=== PATIENT | female | born 1975 | race Two or more races ===

== ENCOUNTER 2022-05-26 13:04 | Emergency (ER) | payer MEDICAID ==
[~2022-05-26] VITALS: Ht 167.6 cm; Wt 130.0 kg
[2022-05-26 14:44] LABS: Basophils # (auto) 0 10 ^3/uL (0-0.2); Eosinophils # (auto) 0.4 10 ^3/uL (0-0.8); Hemoglobin 12.1 g/dL (12.2-16.2); Lymphocytes # (auto) 2.7 10 ^3/uL (0.4-5.4); Nucleated Red Blood Cells % 0.1 %; White Blood Cell 11.1 10^3/uL (4.4-10.8)
[2022-05-26 14:45] LABS: Albumin 3.6 g/dL (3.4-5.0); BUN/Creatinine Ratio 12.2; Calcium 8.5 mg/dL (8.5-10.1); Potassium 4.1 mmol/L (3.5-5.1)
[2022-05-26 14:46] LABS: Basophils % (auto) 0.4 % (0.0-2.0); Eosinophils % (auto) 3.6 % (0.0-7.0); Hematocrit 36.4 % (36.0-46.0); Lymphocytes % (auto) 24.2 % (10.0-50.0); Mean Corpuscular Hemoglobin 26.2 pg (28.0-32.0); Mean Corpuscular Hgb Conc. 33.3 g/dL (32.0-36.0); Mean Corpuscular Volume 78.6 fL (80.0-100.0); Monocytes # (auto) 0.7 10 ^3/uL (0-1.3); Monocytes % (auto) 6.1 % (0.0-12.0); Neutrophils # (auto) 7.3 10 ^3/uL (1.6-8.6); Neutrophils % (auto) 65.7 % (37.0-80.0); Red Blood Cells 4.63 10^6/uL (4.0-5.20); Red Cell Distribution Width 14.7 % (11.8-14.3)
[2022-05-26 14:48] LABS: Bilirubin, Total 0.9 mg/dL (0.2-1.0); Total Protein 7.4 g/dL (6.4-8.2)
[2022-05-26 15:21] LABS: Urine Bacteria NONE SEEN /hpf (None Seen); Urine Blood TRACE /uL (Negative); Urine Mucus FEW (None Seen); Urine Specific Gravity 1.026 (1.001-1.035); Urine WBC 1 /hpf (0 - 5)
[2022-05-26] MEDS ORDERED: NITR-87 PO (18:27)
[2022-05-26] MEDS ORDERED: cefTRIAXone SOD 1,000 MG VL IM ONE (18:30)
[2022-05-26 19:11] VITALS: BP 165/92
== END 2022-05-26 19:13 | disposition home or self-care (01) ==
LOC: ER 13:04
DX: N39.0 Urinary tract infection, site not specified (principal); Z32.02 Encounter for pregnancy test, result negative
CPT/HCPCS: 36415; 74176; 80053; 81001; 81025; 82962; 83605; 83690; 85025; 93005; 96372; 99285; J0696

== ENCOUNTER 2023-02-28 11:52 | Emergency (ER) | payer MEDICAID ==
[~2023-02-28] VITALS: Ht 167.6 cm; Wt 130.3 kg
[~2023-02-28 11:52] MED LIST: NITR-87 PO
[2023-02-28 13:13] LABS: Urine Bacteria NONE SEEN /hpf (None Seen); Urine Blood 2+ /uL (Negative); Urine Clarity HAZY (Clear); Urine Color Yellow (Yellow); Urine Mucus FEW (None Seen); Urine Protein, UAD TRACE (Negative); Urine Specific Gravity 1.024 (1.001-1.035); Urine Urobilinogen Normal (Negative); Urine WBC 1 /hpf (0 - 5); Urine pH 5.5 (5.0-8.0)
[2023-02-28] MEDS ORDERED: HYDROcodone-ACET 5/325MG TAB PO ONE (14:00)
[2023-02-28 15:31] VITALS: BP 138/83; PULSE 76; RESP 18; TEMP 97.5; O2SAT 95
[2023-03-02 08:06] LABS: RPR Non Reactive (Non Reactive)
[2023-03-02 22:06] LABS: Chlamydia Trachomatis, NAA Negative (Negative); Neisseria gonorrhoeae, NAA Negative (Negative)
== END 2023-02-28 15:32 | disposition home or self-care (01) ==
LOC: ER 11:52
DX: K42.9 Umbilical hernia without obstruction or gangrene (principal); Z79.899 Other long term (current) drug therapy
CPT/HCPCS: 74176; 81001; 86592; 86703

== ENCOUNTER 2023-10-20 18:51 | Emergency (ER) | payer MEDICAID ==
[~2023-10-20] VITALS: Ht 167.6 cm; Wt 117.9 kg
[2023-10-20 19:34] VITALS: BP 135/70; PULSE 67; RESP 16; TEMP 98.7; O2SAT 96
[2023-10-20] MEDS: KETOROLAC TROMETH 60MG/2ML VIAL IM ONE (20:15)
[2023-10-20] MEDS: cefTRIAXone SOD 1,000 MG VL IM ONE (20:16)
[2023-10-20] MEDS: AZITHROMYCIN 250 MG TAB PO ONE (20:17)
[2023-10-20] MEDS: ONDANSETRON ODT 4 MG TAB PO ONE (20:17)
[2023-10-20] MEDS: ACETAMINOPHEN/CODEINE#3 (300/30mg) TAB PO ONE (20:18)
[2023-10-20 20:37] LABS: Urine Bacteria FEW /hpf (None Seen); Urine Blood 1+ /uL (Negative); Urine Clarity Turbid (Clear); Urine Color Yellow (Yellow); Urine Mucus FEW (None Seen); Urine Protein, UAD TRACE (Negative); Urine Specific Gravity 1.022 (1.001-1.035); Urine Urobilinogen Normal (Negative); Urine WBC <1 /hpf (0 - 5); Urine pH 5.5 (5.0-9.0)
[2023-10-20 20:51] LABS: Basophils # (auto) 0.1 10 ^3/uL (0-0.2); Basophils % (auto) 0.6 % (0.0-2.0); Eosinophils # (auto) 0.4 10 ^3/uL (0-0.8); Eosinophils % (auto) 3.6 % (0.0-7.0); Hematocrit 39.2 % (36.0-46.0); Hemoglobin 13.1 g/dL (12.2-16.2); Lymphocytes # (auto) 2.8 10 ^3/uL (0.4-5.4); Lymphocytes % (auto) 24.8 % (10.0-50.0); Mean Corpuscular Hemoglobin 27.5 pg (28.0-32.0); Mean Corpuscular Hgb Conc. 33.4 g/dL (32.0-36.0); Mean Corpuscular Volume 82.5 fL (80.0-100.0); Monocytes # (auto) 0.6 10 ^3/uL (0-1.3); Monocytes % (auto) 5.6 % (0.0-12.0); Neutrophils # (auto) 7.5 10 ^3/uL (1.6-8.6); Neutrophils % (auto) 65.4 % (37.0-80.0); Nucleated Red Blood Cells % 0.1 %; Red Blood Cells 4.75 10^6/uL (4.0-5.20); Red Cell Distribution Width 15.2 % (11.8-14.3); White Blood Cell 11.5 10^3/uL (4.4-10.8)
[2023-10-20 21:00] LABS: Chloride 108 mmol/L (98-107); Potassium 4.1 mmol/L (3.5-5.1); Sodium 138 mmol/L (136-145)
[2023-10-20 21:01] LABS: Anion Gap 6 (5-15); Calcium 9.5 mg/dL (8.7-10.4); Carbon Dioxide 24 mmol/L (20-30)
[2023-10-20 21:06] LABS: BUN/Creatinine Ratio 11.8 (10.0-20.0); Blood Urea Nitrogen 9 mg/dL (9-23); Glucose 105 mg/dL (74-106)
[2023-10-20] MEDS ORDERED: ACET500T58 PO (22:55)
[2023-10-20] MEDS ORDERED: IBUP-1455 PO (22:55)
[2023-10-22 21:06] LABS: Chlamydia Trachomatis, NAA Negative (Negative); Neisseria gonorrhoeae, NAA Negative (Negative)
== END 2023-10-20 23:08 | disposition home or self-care (01) ==
LOC: ER 18:51
DX: G89.29 Other chronic pain (principal); M54.59 Other low back pain; Z20.2 Contact with and (suspected) exposure to infections with a predominantly sexual mode of transmission
CPT/HCPCS: 36415; 74176; 80048; 81001; 83605; 85025; 87491; 87591; 96372; 99285; J0696; J1885; Q0162

== ENCOUNTER 2023-12-02 18:41 | Emergency (ER) | payer MEDICAID ==
[~2023-12-02] VITALS: Ht 167.6 cm; Wt 117.2 kg
[~2023-12-02 18:41] MED LIST changes: +ACET500T58 PO; +IBUP-1455 PO
[2023-12-02 19:30] LABS: Urine Bacteria None Seen /hpf (None Seen)
[2023-12-02 19:36] LABS: Urine Blood TRACE /uL (Negative); Urine Clarity Clear (Clear); Urine Color Yellow (Yellow); Urine Protein, UAD Negative (Negative); Urine Specific Gravity 1.025 (1.001-1.035); Urine Urobilinogen Normal (Negative); Urine WBC 5 /hpf (0 - 5); Urine pH 5.5 (5.0-9.0)
[2023-12-02 20:19] LABS: Basophils # (auto) 0 10 ^3/uL (0-0.2); Basophils % (auto) 0.3 % (0.0-2.0); Eosinophils # (auto) 0.5 10 ^3/uL (0-0.8); Eosinophils % (auto) 4.7 % (0.0-7.0); Hematocrit 37.7 % (36.0-46.0); Hemoglobin 12.8 g/dL (12.2-16.2); Lymphocytes % (auto) 28.2 % (10.0-50.0); Mean Corpuscular Hemoglobin 28.1 pg (28.0-32.0); Mean Corpuscular Hgb Conc. 33.8 g/dL (32.0-36.0); Mean Corpuscular Volume 83.1 fL (80.0-100.0); Monocytes # (auto) 0.5 10 ^3/uL (0-1.3); Monocytes % (auto) 4.8 % (0.0-12.0); Neutrophils # (auto) 6.7 10 ^3/uL (1.6-8.6); Platelet Count (auto) 299 10^3/uL (140-450); Red Blood Cells 4.54 10^6/uL (4.0-5.20); Red Cell Distribution Width 15.3 % (11.8-14.3); White Blood Cell 10.8 10^3/uL (4.4-10.8)
[2023-12-02 20:30] LABS: Chloride 108 mmol/L (98-107); Potassium 3.5 mmol/L (3.5-5.1); Sodium 138 mmol/L (136-145)
[2023-12-02 20:32] LABS: Anion Gap 6 (5-15); Calcium 9.7 mg/dL (8.7-10.4); Carbon Dioxide 24 mmol/L (20-30)
[2023-12-02 20:37] LABS: BUN/Creatinine Ratio 14.3 (10.0-20.0); Blood Urea Nitrogen 11 mg/dL (9-23); Glucose 105 mg/dL (74-106)
[2023-12-02] MEDS: MORPHINE SULFATE 4 MG/ML SYR/VIAL IM ONE (20:44)
[2023-12-02] MEDS: ONDANSETRON HCL 4 MG/2 ML VIAL IM ONE (20:44)
[2023-12-02] MEDS ORDERED: IBUP-1455 PO (23:11)
[2023-12-02] MEDS ORDERED: HYDR-4902 PO (23:11)
[2023-12-02 23:33] VITALS: BP 121/65; PULSE 60; RESP 18; TEMP 97.8; O2SAT 97
== END 2023-12-02 23:35 | disposition home or self-care (01) ==
LOC: ER 18:41
DX: D25.9 Leiomyoma of uterus, unspecified (principal); R10.2 Pelvic and perineal pain
CPT/HCPCS: 36415; 76830; 76856; 80048; 81001; 83605; 84702; 85025; 96372; 99285; J2270; J2405

== ENCOUNTER 2024-10-23 19:43 | Emergency (ER) | payer MEDICAID ==
[~2024-10-23] VITALS: Ht 165.1 cm; Wt 104.4 kg
[2024-10-23 19:43] VITALS: BP 131/81; PULSE 77; RESP 18; TEMP 97.9; O2SAT 97
[~2024-10-23 19:43] MED LIST changes: +HYDR-4902 PO
--- NOTE | 2024-10-23 20:37 | ED.PDOC ---
GI ASSESSMENT HPI Comments 49 year old female presents to the ED with a chief complaint of abdominal pain onset 3 days. Patient states she has been experiencing RLQ pain radiates to her back and RT leg, is also experiencing dysuria, nausea, diarrhea, dizziness, headache. Patient states she is currently of Zepbound, has been taking it for a "while." Denies any PMHx as well as vomiting, constipation, hematuria, hematemesis, chest pain, shortness of breath, fevers, chills. No other associated symptoms, modifiers, recent injuries or sick contacts present at this time. Chief Complaint: Abdominal Pain Time Seen by MD: 20:19 Primary Care Provider: JANY Nugent Notes: Medications, Allergies Allergies: Coded Allergies: NO KNOWN ALLERGIES (Unverified , 05/26/22) Home Meds Active Scripts Ibuprofen Micronized (Ibuprofen) 800 Mg Tab, 800 MG PO Q8HPRN PRN, #20 TAB Prov:REKHA LOWE [facility] 12/03/23 Hydrocodone-Acetaminophen (Hydrocodone Bitartrate/AC 5-325 mg) 1 Tab Tab, 1 TAB PO Q6HPRN PRN, #15 TAB Prov:REKHA LOWE [facility] 12/03/23 Acetaminophen (Acetaminophen) 500 Mg Tab, 500 MG PO Q4HP PRN, #30 TAB Prov:SHAILESH ELISE PAC 10/20/23 Ibuprofen Micronized (Ibuprofen) 800 Mg Tab, 800 MG PO Q8HP PRN, #20 TAB Prov:SHAILESH ELISE [facility] 10/20/23 Nitrofurantoin Monohydrate Mac (Macrobid) 100 Mg Cap, 100 MG PO BID for 7 Days, #14 CAP Prov:SHARRI DENNISP 05/26/22 Information Source: Patient Mode of Arrival: Ambulatory Timing: Days Duration: Since onset Prehospital treatment: None Quality: Sharp Vomitus: None Severity: Moderate Recent: None Recent Hx of: None Pain Location: RLQ Modifying Factors: Nothing Associated sign and symptoms: Nausea, Diarrhea, Abdominal Pain Past Medical History PAST MEDICAL HISTORY: UTI'S Surgical History: Hysterectomy 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 History: Endometriosis, Ovarian Cysts, Uterine Fibroids Family History Family History: Reviewed,noncontributory to illness, No family hx of Cancer, No family hx of DM, No family hx of Heart george, No family hx of HTN, No family hx ofKidney george, No family hx of Liver george, No family hx of Lung george, No family hx of Stroke Social History Smoker: Non-Smoker Alcohol: Occasionally Drugs: Denies Drug Use Lives In: Home Constitutional: denies: chills, diaphoresis, fatigue, fever, malaise, sweats, weakness, others EENTM: denies: blurred vision, double vision, ear bleeding, ear discharge, ear drainage, ear pain, ear ringing, eye pain, eye redness, hearing loss, mouth pain, mouth swelling, nasal discharge, nose bleeding, nose congestion, nose pain, photophobia, tearing, throat pain, throat swelling, voice changes, others Respiratory: denies: cough, hemoptysis, orthopnea, SOB at rest, shortness of breath, SOB with excertion, stridor, wheezing, others Cardiovascular: denies: chest pain, dizzy spells, diaphoresis, Dyspnea on exertion, edema, irregular heart beat, left arm pain, lightheadedness, palpitations, PND, syncope, others Gastrointestinal: reports: abdominal pain (RLQ), diarrhea, nausea; denies: abdomen distended, blood streaked bowels, constipated, dysphagia, difficulty swallowing, hematemesis, melena, poor appetite, poor fluid intake, rectal bleeding, rectal pain, vomiting, others Genitourinary: reports: dysuria; denies: abnormal vagina bleeding, burning, dyspareunia, flank pain, frequency, hematuria, incontinence, pain, , vagina discharge, urgency, others Neurological: reports: dizziness, headache; denies: fainting, left sided numbness, left sided weakness, numbness, paresthesia, pre-existing deficit, right sided numbness, right sided weakness, seizure, speech problems, tingling, tremors, weakness, others Musculoskeletal: reports: back pain, others (RT leg pain); denies: gout, joint pain, joint swelling, muscle pain, muscle stiffness, neck pain Integumetry: denies: bruises, change in color, change in hair/nails, dryness, laceration, lesions, lumps, rash, wounds, others Allergic/Immunocompromised: denies: Difficulty Healing, Frequent Infections, Hives, Itching, others Hematologic/Lymphatic: denies: anemia, blood clots, easy bleeding, easy bruising, swollen glands, others Endocrine: denies: excessive hunger, excessive sweating, excessive thirst, excessive urination, flushing, intolerance to cold, intolerance to heat, unexplained weight gain, unexplained weight loss, others Psychiatric: denies: anxiety, bipolar disorder, depression, hopeless, panic disorder, schizophrenia, sleepless, suicidal, others All Other Systems: Reviewed and Negative Physical Exam General Appearance: Normal HEENT: Normal ENT Inspection, Pharynx Normal, TMs Normal Neck: Full Range of Motion, Non-Tender, Normal, Normal Inspection Respiratory: Chest Non-Tender, Lungs Clear, No Accessory Muscle Use, No Respiratory Distress, Normal Breath Sounds Cardiovascular: No Edema, No JVD, No Murmur, No Gallop, Normal Peripheral Pulse s, Regular Rate/Rhythm Breast Exam: Deferred Gastrointestinal: No Organomegaly, Non Tender, No Pulsatile Mass, Normal Bowel Sounds, Soft Genitalia: Deferred Pelvic: Deferred Rectal: Deferred Extremities: No calf tenderness, Normal capillary refill, Normal inspection, Normal range of motion, Non-tender, No pedal edema Musculoskeletal : Apperance: Normal Neurologic: Alert, unscrambler II-XII nml as Tested, No Motor Deficits, Normal Affect, Normal Mood, No Sensory Deficits Cerebellar Function: Normal Reflexes: Normal Skin: Dry, Normal Color, Warm Lymphatic: No Adenopathy Was a procedure done? Was a procedure done?: No GI differential Dx Differential Diagnosis: Appendicitis, Gastritis/PUD, Gastroenteritis X-Ray, Labs, Meds, VS Vital Signs Date Time Temp Pulse Resp B/P (MAP) Pulse Ox O2 Delivery O2 Flow Rate FiO2 10/23/24 19:43 97.9 77 18 131/81 (98) 97 97.9 Lab Test 10/23/24 20:23 10/23/24 20:10 Range/Units White Blood Count 8.4 4.4-10.8 10^3/uL Red Blood Count 5.04 4.0-5.20 10^6/uL Hemoglobin 13.7 12.2-16.2 g/dL Hematocrit 40.2 36.0-46.0 % Mean Corpuscular Volume 79.8 L 80.0-100.0 fL Mean Corpuscular Hemoglobin 27.1 L 28.0-32.0 pg Mean Corpuscular Hemoglobin Concent 33.9 32.0-36.0 g/dL Red Cell Distribution Width 15.0 H 11.8-14.3 % Platelet Count 292 140-450 10^3/uL Mean Platelet Volume 8.2 6.9-10.8 fL Neutrophils (%) (Auto) 52.5 37.0-80.0 % Lymphocytes (%) (Auto) 33.6 10.0-50.0 % Monocytes (%) (Auto) 6.2 0.0-12.0 % Eosinophils (%) (Auto) 7.2 H 0.0-7.0 % Basophils (%) (Auto) 0.5 0.0-2.0 % Neutrophils # (Auto) 4.4 1.6-8.6 10 ^3/uL Lymphocytes # (Auto) 2.8 0.4-5.4 10 ^3/uL Monocytes # (Auto) 0.5 0-1.3 10 ^3/uL Eosinophils # (Auto) 0.6 0-0.8 10 ^3/uL Basophils # (Auto) 0 0-0.2 10 ^3/uL Nucleated Red Blood Cells 0.1 % Sodium Level 140 136-145 mmol/L Potassium Level 4.2 3.5-5.1 mmol/L Chloride Level 103 98-107 mmol/L Carbon Dioxide Level 30 20-31 mmol/L Anion Gap 7 5-15 Blood Urea Nitrogen 12 9-23 mg/dL Creatinine 0.98 0.550-1.02 mg/dL Glomerular Filtration Rate Calc 71 >90 mL/min BUN/Creatinine Ratio 12.2 10.0-20.0 Serum Glucose 101 74-106 mg/dL Calcium Level 10.0 8.7-10.4 mg/dL Urine Color Yellow Yellow Urine Clarity Turbid H Clear Urine pH 5.0 5.0-9.0 Urine Specific [place]ps 1.017 1.001-1.035 Urine Protein Negative Negative Urine Ketones Negative Negative Urine Blood Negative Negative /uL Urine Nitrite Negative Negative Urine Bilirubin Negative Negative Urine Urobilinogen Normal Negative mg/dL Urine Leukocyte Esterase Negative Negative /uL Urine RBC 3 0 - 4 /hpf Urine Microscopic WBC 4 0-5 /HPF Urine Squamous Epithelial Cells Few <5 /hpf Urine Bacteria Few H None Seen /hpf Urine Hyaline Casts Few 0 - 2 /lpf Urine Mucus Few None Seen Urine Glucose Normal Normal mg/dL Urine Test Negative Negative Time of 1ST Reevaluation: 20:49 Reevaluation 1ST: Unchanged Patient Education/Counseling: Diagnosis, Treatment, Prognosis Family Education/Counseling: No Family Present Additional Information The following tests were ordered, and results were reviewed by me: BMP, CBC, UA, PREGUA I discussed treatment and results with medical personnel and: patient Comprehensive systems review obtained and negative except for what is stated in the HPI. SEPSIS Sepsis Screen Date sepsis recognized/suspect: Oct 23, 2024 Time Sepsis recognized/suspect: 1942 Recent Procedure: No On Antibiotic Therapy: No Respiratory Rate >20: No Heart Rate >90: No Temp<36 C (96.8 F) or >38.3 C: No SBP <90 or MAP <65 mmHG: No New Acute Mental Status Change: No Is the patient on CPAP, BIPAP,: No Vital Signs Date Time Temp Pulse Resp B/P (MAP) Pulse Ox O2 Delivery O2 Flow Rate FiO2 10/23/24 19:43 97.9 77 18 131/81 (98) 97 97.9 Laboratory Tests Test 10/23/24 20:23 White Blood Count 8.4 10^3/uL (4.4-10.8) Departure 1 Departure Time of Disposition: 05:54 (Patient presented with right lower quadrant pain concerning for possible appendicitis. The patient eloped prior to workup completion.) Impression: Primary Impression: Right lower quadrant pain Disposition: 07 LEFT AWOL/ELOPED Condition: Serious Critical Care Note Critical Care Time?: No Stability Stability form required: No I personally scribed for HAO CALVIN MD ([email or web address]) on 10/23/24 at 20:37. Electronically submitted by Florencia Monzon ([email or web address]). I personally scribed for HAO CALVIN MD ([email or web address]) on 10/23/24 at 20:49. Electronically submitted by Florencia Monzon ([email or web address]). HAO CALVIN MD Oct 23, 2024 20:37
[2024-10-23 20:57] LABS: Chloride 103 mmol/L (98-107); Potassium 4.2 mmol/L (3.5-5.1); Sodium 140 mmol/L (136-145)
[2024-10-23 20:58] LABS: Anion Gap 7 (5-15); Carbon Dioxide 30 mmol/L (20-31)
[2024-10-23 20:59] LABS: Calcium 10.0 mg/dL (8.7-10.4)
[2024-10-23 21:01] LABS: Hematocrit 40.2 % (36.0-46.0); Hemoglobin 13.7 g/dL (12.2-16.2); Mean Corpuscular Hemoglobin 27.1 pg (28.0-32.0); Mean Corpuscular Volume 79.8 fL (80.0-100.0); Nucleated Red Blood Cells % 0.1 %
[2024-10-23 21:03] LABS: Glucose 101 mg/dL (74-106)
[2024-10-23 21:04] LABS: BUN/Creatinine Ratio 12.2 (10.0-20.0); Blood Urea Nitrogen 12 mg/dL (9-23)
[2024-10-23 21:25] LABS: Urine Protein, UAD Negative (Negative)
[2024-10-23] MEDS ORDERED: MORPHINE SULFATE 4 MG/ML SYR/VIAL IV ONE (22:15)
[2024-10-23] MEDS ORDERED: FAMOTIDINE (10MG/ML) 2ML VL IV ONE (22:15)
[2024-10-23] MEDS ORDERED: SODIUM CHLORIDE 0.9% 1,000 ML IV ONE (22:15)
[2024-10-23] MEDS ORDERED: ONDANSETRON HCL 4 MG/2 ML VIAL IV ONE (22:15)
[2024-10-23] MEDS ORDERED: IOHEXOL 300 MG/ML 100ML BOTTLE IJ ONE (22:19)
== END 2024-10-24 00:10 | disposition left against medical advice (07) ==
LOC: ER 19:43
DX: R10.31 Right lower quadrant pain (principal); R19.7 Diarrhea, unspecified; R11.0 Nausea; F10.90 Alcohol use, unspecified, uncomplicated; Z87.440 Personal history of urinary (tract) infections; Z90.710 Acquired absence of both cervix and uterus; Z79.899 Other long term (current) drug therapy; Y90.9 Presence of alcohol in blood, level not specified
CPT/HCPCS: 36415; 80048; 81001; 81025; 85025; 99283; Q9967

== ENCOUNTER 2024-10-29 17:39 | Inpatient (IN) | payer MEDICAID ==
[~2024-10-29] VITALS: Ht 165.1 cm; Wt 107.1 kg
--- NOTE | 2024-10-29 18:09 | ED.PDOC ---
Altered Mental Status HPI Comments 49 y.o female presents to the ED s/p syncopal episode today in [facility] today. Patient reports she was with her boyfriend and son, states she is unable to recall event leading to syncope but was feeling dizzy and was unable to focus her vision. Patient states when she finally regained consciousness, she was sitting down on the floor but is unsure if she had positive head trauma. Patient mentions decrease appetite due to Zepbound injection use for weight loss. She denies any head pain, nausea, vomiting, chest pain, SOB. Patient presents with BG of 124. Time Seen by MD: 18:01 Primary Care Provider: JANY Nugent Notes: Nurses Notes, Medications, Allergies Allergies: Coded Allergies: NO KNOWN ALLERGIES (Unverified , 05/26/22) Home Meds Active Scripts Ibuprofen Micronized (Ibuprofen) 800 Mg Tab, 800 MG PO Q8HPRN PRN, #20 TAB Prov:REKHA LOWE PAC 12/03/23 Hydrocodone-Acetaminophen (Hydrocodone Bitartrate/AC 5-325 mg) 1 Tab Tab, 1 TAB PO Q6HPRN PRN, #15 TAB Prov:REKHA LOWE [facility] 12/03/23 Acetaminophen (Acetaminophen) 500 Mg Tab, 500 MG PO Q4HP PRN, #30 TAB Prov:SHAILESH ELISE PAC 10/20/23 Ibuprofen Micronized (Ibuprofen) 800 Mg Tab, 800 MG PO Q8HP PRN, #20 TAB Prov:SHAILESH ELISE PAC 10/20/23 Nitrofurantoin Monohydrate Mac (Macrobid) 100 Mg Cap, 100 MG PO BID for 7 Days, #14 CAP Prov:SHARRI DENNISP 05/26/22 Information Source: Patient Mode of Arrival: Ambulatory Severity: Moderate Timing: Hours Duration: Since onset Quality: Decreased Alertness Associated Signs and Symptoms: None Past Medical History PAST MEDICAL HISTORY: UTI'S Past Medical History (Other): chronic back pain Surgical History: Cholecystectomy, (2), Hysterectomy [employer] History: Endometriosis, Ovarian Cysts, Uterine Fibroids Family History Family History: Reviewed,noncontributory to illness, No family hx of Cancer, No family hx of DM, No family hx of Heart george, No family hx of HTN, No family hx ofKidney george, No family hx of Liver george, No family hx of Lung george, No family hx of Stroke Social History Smoker: Non-Smoker Alcohol: Occasionally Drugs: Denies Drug Use Lives In: Home Constitutional: denies: chills, diaphoresis, fatigue, fever, malaise, sweats, weakness, others EENTM: denies: blurred vision, double vision, ear bleeding, ear discharge, ear drainage, ear pain, ear ringing, eye pain, eye redness, hearing loss, mouth pain, mouth swelling, nasal discharge, nose bleeding, nose congestion, nose pain, photophobia, tearing, throat pain, throat swelling, voice changes, others Respiratory: denies: cough, hemoptysis, orthopnea, SOB at rest, shortness of breath, SOB with excertion, stridor, wheezing, others Cardiovascular: reports: syncope; denies: chest pain, dizzy spells, diaphoresis, Dyspnea on exertion, edema, irregular heart beat, left arm pain, lightheadedness, palpitations, PND, others Gastrointestinal: denies: abdomen distended, abdominal pain, blood streaked bowels, constipated, diarrhea, dysphagia, difficulty swallowing, hematemesis, melena, nausea, poor appetite, poor fluid intake, rectal bleeding, rectal pain, vomiting, others Genitourinary: denies: abnormal vagina bleeding, burning, dyspareunia, dysuria, flank pain, frequency, hematuria, incontinence, pain, , vagina discharge, urgency, others Neurological: denies: dizziness, fainting, headache, left sided numbness, left sided weakness, numbness, paresthesia, pre-existing deficit, right sided numbness, right sided weakness, seizure, speech problems, tingling, tremors, weakness, others Musculoskeletal: denies: back pain, gout, joint pain, joint swelling, muscle pain, muscle stiffness, neck pain, others Integumetry: denies: bruises, change in color, change in hair/nails, dryness, laceration, lesions, lumps, rash, wounds, others Allergic/Immunocompromised: denies: Difficulty Healing, Frequent Infections, Hives, Itching, others Endocrine: denies: excessive hunger, excessive sweating, excessive thirst, excessive urination, flushing, intolerance to cold, intolerance to heat, unexplained weight gain, unexplained weight loss, others Psychiatric: denies: anxiety, bipolar disorder, depression, hopeless, panic disorder, schizophrenia, sleepless, suicidal, others All Other Systems: Reviewed and Negative Physical Exam General Appearance: Moderate Distress HEENT: Normal ENT Inspection, Pharynx Normal, TMs Normal Neck: Full Range of Motion, Non-Tender, Normal, Normal Inspection Respiratory: Chest Non-Tender, Lungs Clear, No Accessory Muscle Use, No Respiratory Distress, Normal Breath Sounds Cardiovascular: No Edema, No JVD, No Murmur, No Gallop, Tachycardia Breast Exam: Deferred Gastrointestinal: No Organomegaly, No Pulsatile Mass, Normal Bowel Sounds, Soft Genitalia: Deferred Pelvic: Deferred Rectal: Deferred Extremities: No calf tenderness, Normal capillary refill, No pedal edema Musculoskeletal : Apperance: Normal Neurologic: Alert, manager pharmacy II-XII nml as Tested, Motor Weakness, Normal Affect, Normal Mood, No Sensory Deficits Cerebellar Function: Normal Reflexes: Normal Skin: Dry, Normal Color, Warm Lymphatic: No Adenopathy EKG EKG : Pulse Rate (adult): 104 Cardiac Rhythm: ST Was a procedure done? Was a procedure done?: No Differential Diagnosis (ALOC) Differential Diagnosis: Dehydration, Hypoxemia, Closed Head Injury X-Ray, Labs, Meds, VS Vital Signs Date Time Temp Pulse Resp B/P (MAP) Pulse Ox O2 Delivery O2 Flow Rate FiO2 10/29/24 20:10 78 10/29/24 18:11 104 10/29/24 18:09 97.8 102 18 115/81 (92) 96 97.8 10/29/24 18:09 104 Lab Test 10/29/24 18:30 10/29/24 18:03 10/29/24 18:00 Range/Units White Blood Count 13.1 #H 4.4-10.8 10^3/uL Red Blood Count 5.64 H 4.0-5.20 10^6/uL Hemoglobin 15.1 12.2-16.2 g/dL Hematocrit 44.7 # 36.0-46.0 % Mean Corpuscular Volume 79.4 L 80.0-100.0 fL Mean Corpuscular Hemoglobin 26.8 L 28.0-32.0 pg Mean Corpuscular Hemoglobin Concent 33.8 32.0-36.0 g/dL Red Cell Distribution Width 15.5 H 11.8-14.3 % Platelet Count 329 140-450 10^3/uL Mean Platelet Volume 8.5 6.9-10.8 fL Neutrophils (%) (Auto) 71.2 37.0-80.0 % Lymphocytes (%) (Auto) 19.9 10.0-50.0 % Monocytes (%) (Auto) 6.3 0.0-12.0 % Eosinophils (%) (Auto) 2.3 0.0-7.0 % Basophils (%) (Auto) 0.3 0.0-2.0 % Neutrophils # (Auto) 9.3 H 1.6-8.6 10 ^3/uL Lymphocytes # (Auto) 2.6 0.4-5.4 10 ^3/uL Monocytes # (Auto) 0.8 0-1.3 10 ^3/uL Eosinophils # (Auto) 0.3 0-0.8 10 ^3/uL Basophils # (Auto) 0 0-0.2 10 ^3/uL Nucleated Red Blood Cells 0.0 % Sodium Level 139 136-145 mmol/L Potassium Level 4.4 3.5-5.1 mmol/L Chloride Level 105 98-107 mmol/L Carbon Dioxide Level 26 20-31 mmol/L Anion Gap 8 5-15 Blood Urea Nitrogen 13 9-23 mg/dL Creatinine 1.20 H 0.550-1.02 mg/dL Glomerular Filtration Rate Calc 55 >90 mL/min BUN/Creatinine Ratio 10.8 10.0-20.0 Serum Glucose 96 74-106 mg/dL Calcium Level 9.7 8.7-10.4 mg/dL Urine Color Pending Urine Clarity Pending Urine pH Pending Urine Specific [place]ot Pending Urine Protein Pending Urine Ketones Pending Urine Blood Pending Urine Nitrite Pending Urine Bilirubin Pending Urine Urobilinogen Pending Urine Leukocyte Esterase Pending Urine RBC Pending Urine Microscopic WBC Pending Urine Squamous Epithelial Cells Pending Urine Bacteria Pending Urine Glucose Pending POC Glucose 124 H 70-106 mg/dl CAT scan of the head is within normal limits The patient's CBC shows an elevated white blood cell count of 13.1 The rest of the CBC and chemistry panel are within normal limits The urine test is pending The patient is being admitted at this time The patient understands and agrees with the management. Images Reviewed?: Images reviewed and evaluated by me Time of 1ST Reevaluation: 18:09 Reevaluation 1ST: Unchanged Patient Education/Counseling: Diagnosis, Treatment, Prognosis Family Education/Counseling: No Family Present SEPSIS Sepsis Screen Physician Orders Urinalysis (10/29/24 18:09) Heplock Iv (10/29/24 18:09) Knifer Up (10/29/24 18:09) Blood Pressure (10/29/24 18:09) Pulse Oximetry (10/29/24 18:09) Electrocardigram (10/29/24 21:09) Head Without Contrast (10/29/24 18:09) Vital Signs Date Time Temp Pulse Resp B/P (MAP) Pulse Ox O2 Delivery O2 Flow Rate FiO2 10/29/24 20:10 78 10/29/24 18:11 104 10/29/24 18:09 97.8 102 18 115/81 (92) 96 97.8 10/29/24 18:09 104 Laboratory Tests Test 10/29/24 18:30 White Blood Count 13.1 10^3/uL (4.4-10.8) #H Departure 1 Departure Time of Disposition: 20:01 Impression: Primary Impression: Autonomic dysfunction Additional Impression: Blunt head trauma Qualified Codes: S09.8XXA - Other specified injuries of head, initial encounter Disposition: ADMITTED INPATIENT Admit to: Med Surg Condition: Fair Critical Care Note Critical Care Time?: Yes (45 min-critical care time only) Stability Stability form required: Yes Unstable for transfer: Telemetry monitoring (Telemetry monitoring required), ED Physician Assesment (Clinical assesment) Heart Score Heart Score: Heart Score Response (Comments) Value History N/A 0 EKG N/A 0 Age N/A 0 Risk Factors N/A 0 Troponin N/A 0 Total 0 I personally scribed for ONEAL HIGHTOWER MD ([email or web address]) on 10/29/24 at 18:09. Electronically submitted by Yola Valenzuela ([email or web address]). I personally scribed for ONEAL HIGHTOWER MD ([email or web address]) on 10/29/24 at 18:11. Electronically submitted by Yola Valenzuela ([employer]). ONEAL HIGHTOWER MD Oct 29, 2024 18:09
--- NOTE | 2024-10-29 18:12 | ECG ---
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
[2024-10-29] MEDS: SODIUM CHLORIDE 0.9% 1,000 ML IV ONE (18:15)
[2024-10-29 18:52] LABS: Chloride 105 mmol/L (98-107); Potassium 4.4 mmol/L (3.5-5.1); Sodium 139 mmol/L (136-145)
[2024-10-29 18:53] LABS: Anion Gap 8 (5-15); Calcium 9.7 mg/dL (8.7-10.4); Carbon Dioxide 26 mmol/L (20-31)
[2024-10-29 18:56] LABS: Hemoglobin 15.1 g/dL (12.2-16.2); Nucleated Red Blood Cells % 0.0 %
[2024-10-29 18:57] LABS: Hematocrit 44.7 % (36.0-46.0); Mean Corpuscular Hemoglobin 26.8 pg (28.0-32.0); Mean Corpuscular Volume 79.4 fL (80.0-100.0)
[2024-10-29 18:58] LABS: BUN/Creatinine Ratio 10.8 (10.0-20.0); Blood Urea Nitrogen 13 mg/dL (9-23); Glucose 96 mg/dL (74-106)
--- NOTE | 2024-10-29 19:11 | DVH ---
CT HEAD WITHOUT CONTRAST INDICATION: syncope EXAM DATE: 10/29/2024 06:35 PM COMPARISON: None RADIATION DOSE: CTDIvol: 53.75 mGy, DLP: 951.5 mGy*cm PROCEDURE: CT scans of the head were obtained from the vertex to the skull base. Sagittal and coronal reconstructions were provided. All CT scans at this medical facility are performed using dose modulation techniques as appropriate t o a performed exam including the following: Automated exposure control was utilized; adjustment of th e MA and/or KV according to patient size; and use of iterative reconstruction technique. FINDINGS: Motion artifact degrades fine detailed. The cerebral parenchyma appears to be normal configuration and attenuation. The ventricles, cisterns , and sulci appear age-appropriate. There is no evidence for acute territorial infarct, hemorrhage, or mass effect. Incidental note of a partially empty sella. The orbits are normal. The visualized paranasal sinuses and mastoid air cells are clear. The soft t issues and osseous structures appear within normal limits. IMPRESSION: 1. No acute territorial infarct, intracranial hemorrhage, or mass effect. If clinical symptoms persis t, MRI may be beneficial in further evaluation.
--- NOTE | 2024-10-29 20:17 | ECG ---
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
[2024-10-29] MEDS ORDERED: NITROGLYCERIN 0.4 MG SL TAB SL PRN (21:15)
[2024-10-29] MEDS ORDERED: MORPHINE SULFATE INJ 2 MG/ml SYRG IV PRN (21:15)
[2024-10-29] MEDS ORDERED: SODIUM CHLORIDE 0.9% 1,000 ML IV SCH (21:15)
[2024-10-29] MEDS ORDERED: ONDANSETRON HCL 4 MG/2 ML VIAL IV PRN (21:15)
--- NOTE | 2024-10-29 22:27 | DVHHPRES ---
History of Present Illness Resident Creating Document: DANIEL BLUM RESIDENT History of Present Illness 49-year-old female with previous history of hysterectomy comes to the year with the complaints of passing out today while she was in the grocery, after the episode she did not feel confused. She feels dizziness with palpitations most of the time. She had these episodes of syncope use 3 times within the past 2 months. She has been using Ozempic since last 8 months. Recently she developed frequent burping and loss of appetite. She also complains of frequent headaches lately. She complains of on abdominal pain mostly on the right side, sometimes radiates to left. Most of the time rating 10/10, currently 6/7. Patient complains of urinary frequency and burning sensation during urination. She has history of recurrent UTIs. She denies any chest pain, shortness of breath, fever or any other complaints at this time. Past medical history: Stage II cervical cancer Past surgical history: Hysterectomy due to stage II cervical cancer, 2 sections, cholecystectomy. Smoking history: She previously had smoked for 7 years, 4-5 cigarettes a day. She stopped smoking. Alcohol: Last drink was 1 year ago. Drug abuse: Methamphetamine use few years ago. Medications: Tramadol for back pain, Ozempic Lives with family Review of Systems Review of Systems The patient was seen and examined at bedside. Patient complains of dizziness and abdominal pain. Rest of the ROS is negative. Allergies: Coded Allergies: NO KNOWN ALLERGIES (Unverified , 05/26/22) Medications Current Medications Medications Dose Ordered Sig/Alma Rosa Route Start Time Stop Time Status Last Admin Dose Admin Sodium Chloride 10 ml Q8HR IV 10/29/24 22:00 Sodium Chloride 1,000 ml @ 60 mls/hr [id number] IV 10/29/24 21:15 Ondansetron HCl 4 mg Q4HP PRN IV 10/29/24 21:15 Acetaminophen 650 mg Q6HP PRN PO 10/29/24 21:15 Nitroglycerin 0.4 mg Q5MINP PRN SL 10/29/24 21:15 Morphine Sulfate 2 mg Q30M PRN IV 10/29/24 21:15 Exam Vital Signs Vital Signs Date Time Temp Pulse Resp B/P (MAP) Pulse Ox O2 Delivery O2 Flow Rate FiO2 10/29/24 20:10 78 10/29/24 18:09 97.8 18 115/81 (92) 96 97.8 Exam Pt is lying on bed General Appearance: Obesity, Alert, Oriented X3, Cooperative, Mild distress HEENT: Atraumatic, Mucous membranes moist/pink Respiratory: Clear to auscultation, Normal air movement, No added sounds Cardiovascular: Regular rate, Normal S1, Normal S2, No murmurs Abdominal/ : Active bowel sounds, Soft, no distention, no tenderness Extremities: No edema, Normal pulses, No tenderness/swelling Skin: No Significant rash, except past surgical scars Neuro: Normal speech, sensorimotor deficits none Psych/Mental Status: Mental status NL, Mood NL Nurse was there as flower planter during examination Labs/Xrays Labs Test 10/29/24 18:30 10/29/24 18:03 10/29/24 18:00 Range/Units White Blood Count 13.1 #H 4.4-10.8 10^3/uL Red Blood Count 5.64 H 4.0-5.20 10^6/uL Hemoglobin 15.1 12.2-16.2 g/dL Hematocrit 44.7 # 36.0-46.0 % Mean Corpuscular Volume 79.4 L 80.0-100.0 fL Mean Corpuscular Hemoglobin 26.8 L 28.0-32.0 pg Mean Corpuscular Hemoglobin Concent 33.8 32.0-36.0 g/dL Red Cell Distribution Width 15.5 H 11.8-14.3 % Platelet Count 329 140-450 10^3/uL Mean Platelet Volume 8.5 6.9-10.8 fL Neutrophils (%) (Auto) 71.2 37.0-80.0 % Lymphocytes (%) (Auto) 19.9 10.0-50.0 % Monocytes (%) (Auto) 6.3 0.0-12.0 % Eosinophils (%) (Auto) 2.3 0.0-7.0 % Basophils (%) (Auto) 0.3 0.0-2.0 % Neutrophils # (Auto) 9.3 H 1.6-8.6 10 ^3/uL Lymphocytes # (Auto) 2.6 0.4-5.4 10 ^3/uL Monocytes # (Auto) 0.8 0-1.3 10 ^3/uL Eosinophils # (Auto) 0.3 0-0.8 10 ^3/uL Basophils # (Auto) 0 0-0.2 10 ^3/uL Nucleated Red Blood Cells 0.0 % Sodium Level 139 136-145 mmol/L Potassium Level 4.4 3.5-5.1 mmol/L Chloride Level 105 98-107 mmol/L Carbon Dioxide Level 26 20-31 mmol/L Anion Gap 8 5-15 Blood Urea Nitrogen 13 9-23 mg/dL Creatinine 1.20 H 0.550-1.02 mg/dL Glomerular Filtration Rate Calc 55 >90 mL/min BUN/Creatinine Ratio 10.8 10.0-20.0 Serum Glucose 96 74-106 mg/dL Calcium Level 9.7 8.7-10.4 mg/dL POC Glucose 124 H 70-106 mg/dl SEPSIS Sepsis Screen Date sepsis recognized/suspect: Oct 29, 2024 Time Sepsis recognized/suspect: 1808 Recent Procedure: No On Antibiotic Therapy: No Respiratory Rate >20: No Heart Rate >90: Yes Temp<36 C (96.8 F) or >38.3 C: No SBP <90 or MAP <65 mmHG: No New Acute Mental Status Change: No Is the patient on CPAP, BIPAP,: No Physician Orders Urinalysis (10/29/24 18:09) Heplock Iv (10/29/24 18:09) Web Marketing Strategist (10/29/24 18:09) Blood Pressure (10/29/24 18:09) Pulse Oximetry (10/29/24 18:09) Electrocardigram (10/29/24 21:09) Head Without Contrast (10/29/24 18:09) Admit (10/29/24 21:11) Allergies (10/29/24 21:11) Code Status (10/29/24 21:11) Sodium Chloride Lock (Saline Lock Ns) (10/29/24 22:00) Sodium Chloride 0.9% (10/29/24 21:15) Ondansetron Hcl (Zofran) (10/29/24 21:15) Complete Blood Count (10/30/24 04:00) Comprehensive Metabolic Panel (10/30/24 04:00) Npo (Nothing By Mouth) Diet (10/30/24 Breakfast) Acetaminophen Tablet (Tylenol Tablet) (10/29/24 21:15) Nitroglycerin Sublingual (Ntrostat Subli (10/29/24 21:15) Morphine Sulfate Injection (10/29/24 21:15) Oxygen By Nasal Cannula (10/29/24 21:11) Stat Ekg For Chest Pain (10/29/24 21:11) Notify Of Changes From Base (10/29/24 21:11) Security Strategist For 24 Hours (10/29/24 21:11) Emergency Dysrhythmia Protocol (10/29/24 21:11) Rhythm Strips Once Every Shift (10/29/24 21:11) Ct Ab Pel Wo Con-No Oral Or Iv (10/29/24 21:43) Vital Signs Date Time Temp Pulse Resp B/P (MAP) Pulse Ox O2 Delivery O2 Flow Rate FiO2 10/29/24 20:10 78 10/29/24 18:11 104 10/29/24 18:09 97.8 102 18 115/81 (92) 96 97.8 10/29/24 18:09 104 Laboratory Tests Test 10/29/24 18:30 White Blood Count 13.1 10^3/uL (4.4-10.8) #H Assessment/Plan Assessment/Plan Syncope vasovagal Rule out cardiac cause Rule out neurologic cause Orthostatic hypotension -EKG -CT head -IV fluid Abdominal pain likely due to acute pancreatitis/gastroenteritis? -CT abdomen and pelvis: No acute findings -lipase CLARA likely due to VMN IV fluid Monitor labs Leukocytosis UTI? Pneumonia? Urinalysis is ordered Chest x-ray: Normal GI prophylaxis: Not indicated DVT prophylaxis: Not indicated Diet: regular Goals of care discussed with the patient for more than 27 minutes: Full code status Case discussed with Dr. Cyr, patient and RN Plan discussed with: Patient, Other (RN) My Orders Orders - KULWANT,DANIEL RESIDENT Procedure Category Date Status Time Admit ADMIT 10/29/24 Transmitted 21:11 Allergies NASH 10/29/24 In Process 21:11 Code Status CODE 10/29/24 Transmitted 21:11 Sodium Chloride Lock PHA 10/29/24 In Process (Saline Lock Ns) 22:00 Sodium Chloride 0.9% PHA 10/29/24 In Process 21:15 Ondansetron Hcl PHA 10/29/24 In Process (Zofran) 21:15 Complete Blood Count LAB 10/30/24 Verified 04:00 Comprehensive LAB 10/30/24 Verified Metabolic Panel 04:00 Npo (Nothing By DIET 10/30/24 Transmitted Mouth) Diet Breakfast Acetaminophen Tablet PHA 10/29/24 In Process (Tylenol Tablet) 21:15 Nitroglycerin PHA 10/29/24 In Process Sublingual (Ntrostat 21:15 Morphine Sulfate PHA 10/29/24 In Process Injection 21:15 Oxygen By Nasal RT 10/29/24 Transmitted Cannula 21:11 Stat Ekg For Chest [facility] 10/29/24 In Process Pain 21:11 Notify Md Of Changes [facility] 10/29/24 In Process From Base 21:11 Security Strategist For [facility] 10/29/24 In Process 24 Hours 21:11 Emergency Dysrhythmia [facility] 10/29/24 In Process Protocol 21:11 Rhythm Strips Once [facility] 10/29/24 In Process Every Shift 21:11 Ct Ab Pel Wo Con-No CT 10/29/24 Taken Oral Or Iv 21:43 Common Visit Codes: [id number] INP/OBS CARE (HIGH) Secondary Visit Codes: [id number] CARE PLAN 30 MINUTES DANIEL BLUM RESIDENT Oct 29, 2024 22:27
--- NOTE | 2024-10-29 22:32 | DVH ---
Exam: CT CT AB PEL WO CON-NO ORAL OR IV History: Abdominal pain Comparison Study: CT CT AB PEL WO CON-NO ORAL OR IV on DOS: 10/20/23, CT CT AB PEL WO CON-NO ORAL OR I V on DOS: 02/28/23 TECHNIQUE: Multidetector CT of the abdomen and pelvis was performed from lung bases to pubic symphysi s. Imaging was performed without IV contrast. Axial, coronal, and sagittal multiplanar reformats were obtained from the axial data set by the technologist. RADIATION DOSE: CTDI vol 26.99 mGy. DLP 1511.27 mGy.cm Findings: Limited evaluation of the solid organs in the absence of IV contrast. Liver: Hepatomegaly. Spleen: Small splenule. Pancreas: Unremarkable. Gallbladder: Prior cholecystectomy. Adrenals: Unremarkable Kidneys: Unremarkable. Pelvic Viscera: Prior hysterectomy. Vasculature: Unremarkable. Retroperitoneum: Unremarkable. Bowel: No bowel obstruction. The appendix is normal. Musculoskeletal: Unchanged Schmorl's node encroaching upon the superior endplate of L3 with associate d compression. Soft tissues: Small fat containing umbilical hernia. Lungs: The lung bases are clear. Impression: 1. No acute abdominopelvic abnormality identified. 2. Incidental findings as detailed.
--- NOTE | 2024-10-29 23:37 | DVH ---
CHEST RADIOGRAPH Indication: leukocytosis Technique: Single frontal view of the chest was obtained COMPARISON: None FINDINGS: Lines and Tubes: None Lungs: Clear Pleura: No effusion. No pneumothorax. Cardiomediastinal contours: Unremarkable Bones: Unremarkable IMPRESSION: 1. No acute disease.
[2024-10-30] VITALS (8 sets, daily range): BP systolic 113–136; BP diastolic 69–91; PULSE 65–86; RESP 17–18; TEMP 97.7–98.2; O2SAT 92–99
[2024-10-30 03:01] LABS: Urine Protein, UAD TRACE (Negative)
[2024-10-30] MEDS: SODIUM CHLOR 0.9% PF (SALINE LOCK) 10ML VIAL/SYR IV SCH (03:09)
[2024-10-30] MEDS: SODIUM CHLORIDE 0.9% 1,000 ML IV SCH (05:07)
[2024-10-30 07:11] LABS: Hematocrit 40.7 % (36.0-46.0); Hemoglobin 13.9 g/dL (12.2-16.2); Mean Corpuscular Hemoglobin 27.2 pg (28.0-32.0); Mean Corpuscular Volume 79.7 fL (80.0-100.0); Nucleated Red Blood Cells % 0.0 %
[2024-10-30 07:20] LABS: Alanine Aminotransferase 25 U/L (7-40); Albumin 4.0 g/dL (3.2-4.8); Anion Gap 8 (5-15); BUN/Creatinine Ratio 14.2 (10.0-20.0); Bilirubin, Total 0.3 mg/dL (0.2-1.0); Blood Urea Nitrogen 15 mg/dL (9-23); Calcium 9.4 mg/dL (8.7-10.4); Carbon Dioxide 28 mmol/L (20-31); Chloride 104 mmol/L (98-107); Glucose 105 mg/dL (74-106); Potassium 4.0 mmol/L (3.5-5.1); Sodium 140 mmol/L (136-145); Total Protein 5.9 g/dL (5.7-8.2)
[2024-10-30 07:24] LABS: Alkaline Phosphatase 125 U/L (46-116)
--- NOTE | 2024-10-30 12:51 | DVHSR ---
APPROVED REPORT EXAM: Two-dimensional and M-mode echocardiogram with Doppler and color Doppler. Blood Pressure: 114/80 mmHg INDICATION Syncope RISK FACTORS Height: 5'5, Weight: 229 DIMENSIONS LVDd5.2 (3.8-5.7cm)LA (2D)4.0 (1.9-4.0cm)Aortic Root3.1 (2.0-3.7cm) LVDs3.7 (2.5-4.0cm)LA (MM) (1.9-4.0cm)Aortic Cusp Exc1.8 (1.5-2.0cm) EF (%) 55.0 (55-70%)Rt. Atrium4.0 (1.9-4.0cm)Asc. Aorta2.6 cm IVSd0.9 (0.7-1.1cm)RV (D)3.6 (1.8-2.4cm) PWd0.7 (0.7-1.1cm) Mitral Valve MitralMitral Stenosis E wave0.68m/sMV Mean GR.mmHg A wave0.63m/sMV Peak GR.mmHg E/A ratio1.12D MVAcm2 DECEL [id number] 1/2 Timems Aortic Valve Aortic ValveAortic Stenosis V10.84m/Hernandez Mean GR.5mmHg V21.42m/Hernandez Peak GR.8mmHg LVOT Diameter2.0 (1.8-2.4cm)Doppler AVA1.86cm2 Pulmonic Valve V20.98m/s Tricuspid Valve TR Velocity2.51m/s [id number] Conclusion lvef 55% normal rv function, mild enlarged left atrium enlarged no severe valve abnormality noted
--- NOTE | 2024-10-30 15:24 | DVHPNRES ---
Progress Note Date Seen: Oct 30, 2024 Resident Creating Document: DELVIN MARINELLI RESIDENT Medical Necessity Reason Pt with a Central, PICC or Fol: No Subjective Review of Systems Divina Haque is a 49-year-old female with past history of prediabetes, cervical cancer, chronic back pain presented to the ER with the complaints of loss of consciousness while she was in the grocery store, which urged her visit to the hospital. She also complains of dizziness that lasted for few minutes. She complained of palpitation, incoordination, feeling of weakness in legs before passing out. She had these episodes of syncope 3 times within the past 2 months. She has been using Zepbound since last 8 months. she reports that the episode was witnessed by the boyfriend who saw increased tone in the hands, her eyes rolled and she had incontinence of bowel. She reported loss of appetite, to a point where she eats 1 meal a day since one week. She also complained of frequent headaches & abdominal pain mostly on the right side Near the umbilical area. She rated the pain as 10/10, associated with nausea, worsening with eating. She also complained of urinary frequency and burning sensation during micturition. She has history of recurrent UTIs. She denied any chest pain, shortness of breath, fever, diarrhea, vomiting, sick contacts, no recent air travel. on arrival, urine analysis was obtained , WNL. her labs show leukocytosis, increased creatinine. Her x-ray is WNL. CT shows umbilical hernia with no acute findings. CT head shows no acute findings. PMHx: Prediabetes, cervical cancer, chronic back pain PSHx: Hysterectomy Family history: positive for seizures in mother Social history: quit smoking 15-20 years ago, no alcohol use, reports no use of recreational drugs. Lives in a home with family. Home medication: Zepbound, tramadol ROS: Constitutional: Denies weight loss, fever and chills. HEENT: complains of dizziness, tinnitus. Denies changes in vision and hearing. Respiratory: Denies shortness of breath and cough Cardiovascular: Chest discomfort or palpitations associated with the episode of loss of consciousness GI: Abdominal pain, nausea. Denies vomiting and diarrhea. : Complains of dysuria and urinary frequency. Musculoskeletal: Denies myalgias and joint pain Skin: Denies rash and pruritus. Neurological: Dizziness, headache OA She was examined at bedside today. She continues to complain of headache, pain in abdomen. Objective vital signs Vital Sign Date Time Temp Pulse Resp B/P (MAP) Pulse Ox O2 Delivery O2 Flow Rate FiO2 10/30/24 12:55 97.9 66 118/70 (86) 92 97.9 10/30/24 05:00 17 10/30/24 02:51 Room Air* 0 21 medications Current Medications Medications Dose Ordered Sig/Alma Rosa Route Start Time Stop Time Status Last Admin Dose Admin Sodium Chloride 10 ml Q8HR IV 10/29/24 22:00 10/30/24 05:02 10 ML Ondansetron HCl 4 mg Q4HP PRN IV 10/29/24 21:15 Acetaminophen 650 mg Q6HP PRN PO 10/29/24 21:15 Sodium Chloride 1,000 ml @ 100 mls/hr Q10H IV 10/29/24 22:45 10/30/24 08:48 100 MLS/HR Examination General Appearance: Alert, Oriented X3, Cooperative, No acute distress HEENT: Atraumatic, PERRLA, EOMI, Mucous membrane moist/pink Respiratory: Clear to auscultation, Normal air movement Cardiovascular: Regular rate, Normal S1, Normal S2, No murmurs, no chest wall tenderness Abdominal: Mild tendereness on abdominal palpation. Extremities: No clubbing, No cyanosis, No edema, Normal pulses, No tenderness/swelling Skin: No rashes, No breakdown, No significant lesion Neuro: Normal gait, Normal speech, Strength at 5/5 X4 ext, Normal tone, Sensation intact, Cranial nerves 3-12 NL, Reflexes 2+ Psych/Mental Status: Mental status NL, Mood NL laboratory and microbiology Laboratory Tests 10/30/24 06:24 Test 10/30/24 06:24 Range/Units Serum Glucose 105 74-106 mg/dL Problem List/Assessment/Plan Problem List/Assessment/Plan Syncope likely vasovagal Orthostatic hypotension, possible Intravascular volume depletion, possible Stroke, ruled out Ruled out cardiac cause * EKG revealed sinus tachycardia, borderline repolarization abnormality, baseline wander in lead(s) V2,V4,V6 * CT head revealed no acute abnormality * IV maintenance fluid * Orthostatic vitals WNL * Continue Zofran Abdominal pain likely due to gastroenteritis Pancreatitis, ruled out * CT abdomen and pelvis revealed no acute abnormality. * Lipase WNL CLARA likely due to VMN * IV fluid * Monitor labs Pneumonia, ruled out UTI, ruled out Leukocytosis * Urinalysis WNL * Chest x-ray WNL Obesity class 2 with BMI 38.2 * Lifestyle modification DIET: Regular DVT PROPHYLAXIS: Not indicated CODE STATUS: Goals of care discussed with patient at bedside for more than 25 minutes, full code DISPOSITION: Telemetry monitoring Patient's status and plan discussed with the patient. Case discussed with Dr. Bob Plan discussed with: Patient Date of Service: Oct 30, 2024 Billing Provider: SARBJIT BOB MD Common Visit Codes: [id number] INP/OBS CARE(HIGH) DELVIN MARINELLI RESIDENT Oct 30, 2024 15:24 SARBJIT BOB MD Nov 01, 2024 13:45
[2024-10-31 01:00] VITALS: BP 126/83; PULSE 67; RESP 18; TEMP 98; O2SAT 98
[2024-10-31] MEDS: BACLOFEN 10 MG TAB PO ONE (02:29)
[2024-10-31] MEDS: ACETAMINOPHEN 325 MG TAB PO PRN (02:46)
[2024-10-31 06:56] LABS: Chloride 107 mmol/L (98-107); Potassium 3.8 mmol/L (3.5-5.1); Sodium 142 mmol/L (136-145)
[2024-10-31 06:57] LABS: Anion Gap 8 (5-15); Calcium 9.3 mg/dL (8.7-10.4); Carbon Dioxide 27 mmol/L (20-31)
[2024-10-31 07:02] LABS: BUN/Creatinine Ratio 14.8 (10.0-20.0); Blood Urea Nitrogen 13 mg/dL (9-23); Glucose 100 mg/dL (74-106)
[2024-10-31 07:06] LABS: Hematocrit 35.0 % (36.0-46.0); Hemoglobin 11.9 g/dL (12.2-16.2); Mean Corpuscular Hemoglobin 27.2 pg (28.0-32.0); Mean Corpuscular Volume 79.7 fL (80.0-100.0); Nucleated Red Blood Cells % 0.1 %
[2024-10-31 08:00] VITALS: PULSE 65; PULSE 68; RESP 15; O2SAT 93
[2024-10-31 09:00] VITALS: BP 111/74; PULSE 61; RESP 15; TEMP 98.1; O2SAT 93
[2024-10-31] MEDS ORDERED: PANTOPRAZOLE 40 MG/10 ML VIAL INJ IV SCH (09:00)
[2024-10-31 10:33] LABS: Total Iron Binding Capacity 272.0 ug/dL (250-425)
[2024-10-31 10:51] LABS: Iron 41.0 ug/dL (50-170)
[2024-10-31 12:04] LABS: INR 0.98 (0.9-1.15); Prothrombin Time 10.4 sec (9.3-11.8)
[2024-10-31 13:00] VITALS: BP 123/75; PULSE 72; RESP 18; TEMP 98.4; O2SAT 98
--- NOTE | 2024-10-31 15:39 | DVHDSRES ---
Discharge Summary Date of Admission Resident Creating Document: DELVIN MARINELLI RESIDENT Oct 29, 2024 at 21:11 Date of Discharge: Oct 31, 2024 Admitting Diagnosis Syncope vasovagal Wounds: No large wounds Labs/Diagnostic Data: Laboratory Results Test 10/31/24 11:02 10/31/24 06:12 10/30/24 06:24 10/30/24 00:00 Prothrombin Time 10.4 sec (9.3-11.8) Prothrombin Time INR 0.98 (0.9-1.15) White Blood Count 7.7 10^3/uL (4.4-10.8) Red Blood Count 4.39 10^6/uL (4.0-5.20) Hemoglobin 11.9 g/dL (12.2-16.2) Hematocrit 35.0 % (36.0-46.0) Mean Corpuscular Volume 79.7 fL (80.0-100.0) Mean Corpuscular Hemoglobin 27.2 pg (28.0-32.0) Mean Corpuscular Hemoglobin Concent 34.2 g/dL (32.0-36.0) Red Cell Distribution Width 15.1 % (11.8-14.3) Platelet Count 239 10^3/uL (140-450) Mean Platelet Volume 8.5 fL (6.9-10.8) Neutrophils (%) (Auto) 46.6 % (37.0-80.0) Lymphocytes (%) (Auto) 40.4 % (10.0-50.0) Monocytes (%) (Auto) 6.6 % (0.0-12.0) Eosinophils (%) (Auto) 6.0 % (0.0-7.0) Basophils (%) (Auto) 0.4 % (0.0-2.0) Neutrophils # (Auto) 3.6 10 ^3/uL (1.6-8.6) Lymphocytes # (Auto) 3.1 10 ^3/uL (0.4-5.4) Monocytes # (Auto) 0.5 10 ^3/uL (0-1.3) Eosinophils # (Auto) 0.5 10 ^3/uL (0-0.8) Basophils # (Auto) 0 10 ^3/uL (0-0.2) Nucleated Red Blood Cells 0.1 % Sodium Level 142 mmol/L (136-145) Potassium Level 3.8 mmol/L (3.5-5.1) Chloride Level 107 mmol/L (98-107) Carbon Dioxide Level 27 mmol/L (20-31) Anion Gap 8 (5-15) Blood Urea Nitrogen 13 mg/dL (9-23) Creatinine 0.88 mg/dL (0.550-1.02) Glomerular Filtration Rate Calc 81 mL/min (>90) BUN/Creatinine Ratio 14.8 (10.0-20.0) Serum Glucose 100 mg/dL (74-106) Calcium Level 9.3 mg/dL (8.7-10.4) Iron Level 41 ug/dL (50-170) Total Iron Binding Capacity 272 ug/dL (250-425) Percent Iron Saturation 15.1 % (15-50) Ferritin 32.1 ng/mL (10-291) Hemoglobin A1c 5.4 % A1C (<5.7) Total Bilirubin 0.3 mg/dL (0.2-1.0) Aspartate Amino Transferase (AST) 24 U/L (13-40) Alanine Aminotransferase (ALT) 25 U/L (7-40) Alkaline Phosphatase 125 U/L (46-116) Total Protein 5.9 g/dL (5.7-8.2) Albumin 4.0 g/dL (3.2-4.8) Urine Color Yellow (Yellow) Urine Clarity Clear (Clear) Urine pH 5.5 (5.0-9.0) Urine Specific [place] 1.024 (1.001-1.035) Urine Protein Trace (Negative) Urine Ketones Negative (Negative) Urine Blood Negative /uL (Negative) Urine Nitrite Negative (Negative) Urine Bilirubin Negative (Negative) Urine Urobilinogen Normal mg/dL (Negative) Urine Leukocyte Esterase Negative /uL (Negative) Urine RBC <1 /hpf (0 - 4) Urine Microscopic WBC 6 /HPF (0-5) Urine Squamous Epithelial Cells Few /hpf (<5) Urine Bacteria None seen /hpf (None Seen) Urine Hyaline Casts Few /lpf (0 - 2) Urine Mucus Few (None Seen) Urine Glucose Normal mg/dL (Normal) Test 10/29/24 18:30 10/29/24 18:00 Lipase 29 U/L (12-53) POC Glucose 124 mg/dl (70-106) Other Laboratory Tests 10/31/24 06:12 Brief Hx & Hospital Course: Divina Haque is a 49-year-old female with past history of prediabetes, cervical cancer, chronic back pain presented to the ER with the complaints of loss of consciousness while she was in the grocery store, which urged her visit to the hospital. She also complained of dizziness that lasted for few minutes. She complained of palpitation, incoordination, feeling of weakness in legs before passing out. She had these episodes of syncope 3 times within the past 2 months. She has been using Zepbound since last 8 months. she reports that the episode was witnessed by the boyfriend who saw increased tone in the hands, her eyes rolled and she had incontinence of bowel. She reported loss of appetite, to a point where she eats 1 meal a day since one week. She also complained of frequent headaches & abdominal pain mostly on the right side Near the umbilical area. She rated the pain as 10/10, associated with nausea, worsening with eating. She also complained of urinary frequency and burning sensation during micturition. She has history of recurrent UTIs. She denied any chest pain, shortness of breath, fever, diarrhea, vomiting, sick contacts, no recent air travel. on arrival, urine analysis was obtained , WNL. her labs show leukocytosis, increased creatinine. Her x-ray is WNL. CT shows umbilical hernia with no acute findings. CT head shows no acute findings. During her stay, she was managed with IV fluids And was monitored closely. Orthostatic vitals are WNL. She is stable for discharge and will follow-up closely with PCP to manage Zepbound dosage. Operations or Procedures HEST RADIOGRAPH Indication: leukocytosis Technique: Single frontal view of the chest was obtained COMPARISON: None FINDINGS: Lines and Tubes: None Lungs: Clear Pleura: No effusion. No pneumothorax. Cardiomediastinal contours: Unremarkable Bones: Unremarkable IMPRESSION: 1. No acute disease. -- CT CT AB PEL WO CON-NO ORAL OR IV History: Abdominal pain Comparison Study: CT CT AB PEL WO CON-NO ORAL OR IV on DOS: 10/20/23, CT CT AB PEL WO CON-NO ORAL OR IV on DOS: 02/28/23 TECHNIQUE: Multidetector CT of the abdomen and pelvis was performed from lung bases to pubic symphysis. Imaging was performed without IV contrast. Axial, coronal, and sagittal multiplanar reformats were obtained from the axial data set by the technologist. RADIATION DOSE: CTDI vol 26.99 mGy. DLP 1511.27 mGy.cm Findings: Limited evaluation of the solid organs in the absence of IV contrast. Liver: Hepatomegaly. Spleen: Small splenule. Pancreas: Unremarkable. Gallbladder: Prior cholecystectomy. Adrenals: Unremarkable Kidneys: Unremarkable. Pelvic Viscera: Prior hysterectomy. Vasculature: Unremarkable. Retroperitoneum: Unremarkable. Bowel: No bowel obstruction. The appendix is normal. Musculoskeletal: Unchanged Schmorl's node encroaching upon the superior endplate of L3 with associated compression. Soft tissues: Small fat containing umbilical hernia. Lungs: The lung bases are clear. Impression: 1. No acute abdominopelvic abnormality identified. 2. Incidental findings as detailed. --- CT HEAD WITHOUT CONTRAST INDICATION: syncope EXAM DATE: 10/29/2024 06:35 PM COMPARISON: None RADIATION DOSE: CTDIvol: 53.75 mGy, DLP: 951.5 mGy*cm PROCEDURE: CT scans of the head were obtained from the vertex to the skull base. Sagittal and coronal reconstructions were provided. All CT scans at this medical facility are performed using dose modulation techniques as appropriate to a performed exam including the following: Automated exposure control was utilized; adjustment of the MA and/or KV according to patient size; and use of iterative reconstruction technique. FINDINGS: Motion artifact degrades fine detailed. The cerebral parenchyma appears to be normal configuration and attenuation. The ventricles, cisterns, and sulci appear age-appropriate. There is no evidence for acute territorial infarct, hemorrhage, or mass effect. Incidental note of a partially empty sella. The orbits are normal. The visualized paranasal sinuses and mastoid air cells are clear. The soft tissues and osseous structures appear within normal limits. IMPRESSION: 1. No acute territorial infarct, intracranial hemorrhage, or mass effect. If clinical symptoms persist, MRI may be beneficial in further evaluation. --- EXAM: Two-dimensional and M-mode echocardiogram with Doppler and color Doppler. Blood Pressure: 114/80 mmHg INDICATION Syncope RISK FACTORS Height: 5'5, Weight: 229 DIMENSIONS LVDd 5.2 (3.8-5.7cm) LA (2D) 4.0 (1.9-4.0cm) Aortic Root 3.1 (2.0- 3.7cm) LVDs 3.7 (2.5-4.0cm) LA (MM) (1.9-4.0cm) Aortic Cusp Exc 1.8 (1.5- 2.0cm) EF (%) 55.0 (55-70%) Rt. Atrium 4.0 (1.9-4.0cm) Asc. Aorta 2.6 cm IVSd 0.9 (0.7-1.1cm) RV (D) 3.6 (1.8-2.4cm) PWd 0.7 (0.7-1.1cm) Mitral Valve Mitral Mitral Stenosis E wave 0.68m/s MV Mean GR. mmHg A wave 0.63m/s MV Peak GR. mmHg E/A ratio 1.1 2D MVA cm2 DECEL Time 216ms PRESS 1/2 Time ms Aortic Valve Aortic Valve Aortic Stenosis V1 0.84m/s AO Mean GR. 5mmHg V2 1.42m/s AO Peak GR. 8mmHg LVOT Diameter 2.0 (1.8-2.4cm) Doppler KARIE 1.86cm2 Pulmonic Valve V2 0.98m/s Tricuspid Valve TR Velocity 2.51m/s RVSP 28mmHg Conclusion lvef 55% normal rv function, mild enlarged left atrium enlarged no severe valve abnormality noted Condition at Discharge: Stable Final Diagnosis/Problems List Dizziness dehydration due to hypovolumia Syncope likely vasovagal Orthostatic hypotension, possible Intravascular volume depletion, possible Stroke, ruled out Ruled out cardiac cause Abdominal pain likely due to gastroenteritis Pancreatitis, ruled out CLARA likely due to VMN Pneumonia, ruled out UTI, ruled out Leukocytosis Obesity class 2 with BMI 38.2 Discharge Disposition: Home Discharge Instruct/Medications Diet: Consistent carbohydrate Activity: No Restrictions, As Tolerated Follow Up/Referral: pcp Medications: as per ehr Care Plan: Follow with PCP in 1 week. Continue home medications. Scheduled Nitrofurantoin Monohydrate Mac (Macrobid), 100 MG PO BID Scheduled PRN Acetaminophen (Acetaminophen), 500 MG PO Q4HP PRN Hydrocodone-Acetaminophen (Hydrocodone Bitartrate/AC 5-325 mg), 1 TAB PO Q6HPRN PRN Ibuprofen Micronized (Ibuprofen), 800 MG PO Q8HP PRN Ibuprofen Micronized (Ibuprofen), 800 MG PO Q8HPRN PRN Discharge Statement: "Patient was advised to return to the ER or call 911 if any headaches, dizziness, shortness of breath, chest pain, abdominal pain, bleeding, fevers, or worsening of medical condition. Patient was counseled about treatment plan, medications, possible side effects, patientverbalized understanding. All questions were answered to the best of my ability. This discharge took greater then 30 minutes in planning, reviewing documentation, counseling the patient, and discussing with other team members." ASSESSMENT ASSESSMENT Assessment dizziness dehydration due to hypovolumia Date of Service: Oct 31, 2024 Billing Provider: SARBJIT BOB MD Common Visit Codes: 82213-GSA/OBS DISCH DAY >30min DELVIN MARINELLI RESIDENT Oct 31, 2024 15:39 SARBJIT OBB MD Nov 01, 2024 14:05
== END 2024-10-31 14:50 | disposition home or self-care (01) | DRG 249 ==
LOC: ER 17:39 → OVERFLOW 21:11 → CENTRAL 10-30 15:55 → TELE-CENTR 10-31 02:38
PROVIDERS: ADMIT Student in an Organized Health Care Education/Training Program; ATTEND Student in an Organized Health Care Education/Training Program
DX: E86.1 Hypovolemia (principal); K52.9 Noninfective gastroenteritis and colitis, unspecified; N17.0 Acute kidney failure with tubular necrosis; E86.0 Dehydration; S09.8XXA Other specified injuries of head, initial encounter; E86.9 Volume depletion, unspecified; G90.89 Other disorders of autonomic nervous system; I95.1 Orthostatic hypotension; E66.812 Obesity, class 2; G89.29 Other chronic pain; Z68.38 Body mass index [BMI] 38.0-38.9, adult; Z79.1 Long term (current) use of non-steroidal anti-inflammatories (NSAID); Z79.899 Other long term (current) drug therapy; Z90.710 Acquired absence of both cervix and uterus; Z90.49 Acquired absence of other specified parts of digestive tract; Z98.891 History of uterine scar from previous surgery; X58.XXXA Exposure to other specified factors, initial encounter; Y93.89 Activity, other specified; Y92.89 Other specified places as the place of occurrence of the external cause; Y99.8 Other external cause status
CPT/HCPCS: 36415; 70450; 71045; 74176; 80048; 80053; 81001; 82728; 82962; 83036; 83540; 83550; 83690; 85025; 85610; 93005; 93306; 96360; 99291; G0378

== ENCOUNTER 2025-03-10 13:55 | Inpatient (IN) | payer MEDICAID ==
[~2025-03-10] VITALS: Ht 167.6 cm; Wt 110.0 kg
--- NOTE | 2025-03-10 15:56 | ED.PDOC ---
GI ASSESSMENT HPI Comments This is a 49 year old female presenting to the ED with chief complaint of constipation. Patient reports that she has been experiencing severe constipation for the past 1.5 weeks. Patient relays that she has taken multiple laxatives and medications ordered by her PCP, including Golytely. Patient states she is now having severe abdominal pain. Patient notes she also has history of frequent UTIs and currently has right flank pain. Patient denies any N/V/D, fever, chills, dizziness, or dysuria. Chief Complaint: Constipation Time Seen by MD: 15:56 Primary Care Provider: TAL Reviewed Notes: Nurses Notes, Medications, Allergies Allergies: Coded Allergies: NO KNOWN ALLERGIES (Unverified , 05/26/22) Home Meds Active Scripts Ibuprofen Micronized (Ibuprofen) 800 Mg Tab, 800 MG PO Q8HPRN PRN, #20 TAB Prov:REKHA LOWE [facility] 12/03/23 Hydrocodone-Acetaminophen (Hydrocodone Bitartrate/AC 5-325 mg) 1 Tab Tab, 1 TAB PO Q6HPRN PRN, #15 TAB Prov:REKHA LOWE [facility] 12/03/23 Acetaminophen (Acetaminophen) 500 Mg Tab, 500 MG PO Q4HP PRN, #30 TAB Prov:SHAILESH ELISE [facility] 10/20/23 Ibuprofen Micronized (Ibuprofen) 800 Mg Tab, 800 MG PO Q8HP PRN, #20 TAB Prov:SHAILESH ELISE PAC 10/20/23 Nitrofurantoin Monohydrate Mac (Macrobid) 100 Mg Cap, 100 MG PO BID for 7 Days, #14 CAP Prov:SHARRI [facility] 05/26/22 Information Source: Patient Mode of Arrival: Ambulatory Timing: Weeks Duration: Since onset Prehospital treatment: None Quality: Sharp Vomitus: None Stool: Impaction Severity: Moderate Recent: Laxative Use Recent Hx of: None Pain Location: Diffuse Modifying Factors: Nothing Associated sign and symptoms: Constipation, Abdominal Pain Past Medical History PAST MEDICAL HISTORY: UTI'S Surgical History: Cholecystectomy, , Hysterectomy 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: Endometriosis, Ovarian Cysts, Uterine Fibroids Family History Family History: Reviewed,noncontributory to illness, No family hx of Cancer, No family hx of DM, No family hx of Heart george, No family hx of HTN, No family hx ofKidney george, No family hx of Liver george, No family hx of Lung george, No family hx of Stroke Social History Smoker: Non-Smoker Alcohol: Occasionally Drugs: Denies Drug Use Lives In: Home Constitutional: denies: chills, diaphoresis, fatigue, fever, malaise, sweats, weakness, others EENTM: denies: blurred vision, double vision, ear bleeding, ear discharge, ear drainage, ear pain, ear ringing, eye pain, eye redness, hearing loss, mouth pain, mouth swelling, nasal discharge, nose bleeding, nose congestion, nose pain , photophobia, tearing, throat pain, throat swelling, voice changes, others Respiratory: denies: cough, hemoptysis, orthopnea, SOB at rest, shortness of breath, SOB with excertion, stridor, wheezing, others Cardiovascular: denies: chest pain, dizzy spells, diaphoresis, Dyspnea on exertion, edema, irregular heart beat, left arm pain, lightheadedness, palpitations, PND, syncope, others Gastrointestinal: reports: abdominal pain, constipated; denies: abdomen distended, blood streaked bowels, diarrhea, dysphagia, difficulty swallowing, hematemesis, melena, nausea, poor appetite, poor fluid intake, rectal bleeding, rectal pain, vomiting, others Genitourinary: reports: flank pain; denies: abnormal vagina bleeding, burning, dyspareunia, dysuria, frequency, hematuria, incontinence, pain, , vagina discharge, urgency, others Neurological: denies: dizziness, fainting, headache, left sided numbness, left sided weakness, numbness, paresthesia, pre-existing deficit, right sided numbness, right sided weakness, seizure, speech problems, tingling, tremors, weakness, others Musculoskeletal: denies: back pain, gout, joint pain, joint swelling, muscle pain, muscle stiffness, neck pain, others Integumetry: denies: bruises, change in color, change in hair/nails, dryness, laceration, lesions, lumps, rash, wounds, others Allergic/Immunocompromised: denies: Difficulty Healing, Frequent Infections, Hives, Itching, others Hematologic/Lymphatic: denies: anemia, blood clots, easy bleeding, easy bruising, swollen glands, others Endocrine: denies: excessive hunger, excessive sweating, excessive thirst, excessive urination, flushing, intolerance to cold, intolerance to heat, unexplained weight gain, unexplained weight loss, others Psychiatric: denies: anxiety, bipolar disorder, depression, hopeless, panic disorder, schizophrenia, sleepless, suicidal, others All Other Systems: Reviewed and Negative Physical Exam General Appearance: No Apparent Distress, Normal HEENT: Normal ENT Inspection, Pharynx Normal, TMs Normal Neck: Full Range of Motion, Non-Tender, Normal, Normal Inspection Respiratory: Chest Non-Tender, Lungs Clear, No Accessory Muscle Use, No Respiratory Distress, Normal Breath Sounds Cardiovascular: No Edema, No JVD, No Murmur, No Gallop, Normal Peripheral Pulses, Regular Rate/Rhythm Breast Exam: Deferred Gastrointestinal: No Organomegaly, No Pulsatile Mass, Normal Bowel Sounds, Soft, Tenderness (Diffuse abdominal tenderness) Genitalia: Deferred Pelvic: Deferred Rectal: Deferred Extremities: No calf tenderness, Normal capillary refill, Normal inspection, Normal range of motion, Non-tender, No pedal edema Musculoskeletal : Apperance: Normal Neurologic: Alert, 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 Was a procedure done?: No GI differential Dx Differential Diagnosis: Constipation X-Ray, Labs, Meds, VS Vital Signs Date Time Temp Pulse Resp B/P (MAP) Pulse Ox O2 Delivery O2 Flow Rate FiO2 03/10/25 15:59 98.4 77 18 149/61 (90) 99 98.4 03/10/25 13:57 96.0 69 15 134/79 98 96.0 Lab Test 03/10/25 17:40 03/10/25 14:06 Range/Units Urine Color Light-yellow Yellow Urine Clarity Clear Clear Urine pH 5.5 5.0-9.0 Urine Specific [place] 1.017 1.001-1.035 Urine Protein Negative Negative Urine Ketones Negative Negative Urine Blood Negative Negative /uL Urine Nitrite Negative Negative Urine Bilirubin Negative Negative Urine Urobilinogen Normal Negative mg/dL Urine Leukocyte Esterase Negative Negative /uL Urine RBC 2 0 - 4 /hpf Urine Microscopic WBC < 1 0-5 /HPF Urine Squamous Epithelial Cells Few <5 /hpf Urine Bacteria Few H None Seen /hpf Urine Glucose Normal Normal mg/dL White Blood Count 7.1 4.4-10.8 10^3/uL Red Blood Count 4.97 4.0-5.20 10^6/uL Hemoglobin 13.0 12.2-16.2 g/dL Hematocrit 39.7 36.0-46.0 % Mean Corpuscular Volume 79.9 L 80.0-100.0 fL Mean Corpuscular Hemoglobin 26.2 L 28.0-32.0 pg Mean Corpuscular Hemoglobin Concent 32.8 32.0-36.0 g/dL Red Cell Distribution Width 15.4 H 11.8-14.3 % Platelet Count 312 140-450 10^3/uL Mean Platelet Volume 8.1 6.9-10.8 fL Neutrophils (%) (Auto) 49.1 37.0-80.0 % Lymphocytes (%) (Auto) 36.9 10.0-50.0 % Monocytes (%) (Auto) 6.7 0.0-12.0 % Eosinophils (%) (Auto) 6.8 0.0-7.0 % Basophils (%) (Auto) 0.5 0.0-2.0 % Neutrophils # (Auto) 3.5 1.6-8.6 10 ^3/uL Lymphocytes # (Auto) 2.6 0.4-5.4 10 ^3/uL Monocytes # (Auto) 0.5 0-1.3 10 ^3/uL Eosinophils # (Auto) 0.5 0-0.8 10 ^3/uL Basophils # (Auto) 0 0-0.2 10 ^3/uL Nucleated Red Blood Cells 0.0 % Sodium Level 142 136-145 mmol/L Potassium Level 4.2 3.5-5.1 mmol/L Chloride Level 102 98-107 mmol/L Carbon Dioxide Level 29 20-31 mmol/L Anion Gap 11 5-15 Blood Urea Nitrogen 16 9-23 mg/dL Creatinine 0.80 0.550-1.02 mg/dL Glomerular Filtration Rate Calc 90 >90 mL/min BUN/Creatinine Ratio 20.0 10.0-20.0 Serum Glucose 71 L 74-106 mg/dL Calcium Level 9.6 8.7-10.4 mg/dL Total Bilirubin 0.5 0.2-1.0 mg/dL Aspartate Amino Transferase (AST) 35 13-40 U/L Alanine Aminotransferase (ALT) 34 7-40 U/L Alkaline Phosphatase 157 H 46-116 U/L Troponin I High Sensitivity 21 </=34 ng/L Total Protein 6.8 5.7-8.2 g/dL Albumin 4.5 3.2-4.8 g/dL Lipase 35 12-53 U/L Time of 1ST Reevaluation: 16:54 Reevaluation 1ST: Improved Patient Education/Counseling: Diagnosis, Treatment Family Education/Counseling: No Family Present SEPSIS Sepsis Screen Date sepsis recognized/suspect: Mar 10, 2025 Time Sepsis recognized/suspect: 1358 Recent Procedure: No On Antibiotic Therapy: No Respiratory Rate >20: No Heart Rate >90: No Temp<36 C (96.8 F) or >38.3 C: No SBP <90 or MAP <65 mmHG: No New Acute Mental Status Change: No Is the patient on CPAP, BIPAP,: No Physician Orders Ct Ab Pel With Iv Con Only (03/10/25 15:44) Vital Signs Date Time Temp Pulse Resp B/P (MAP) Pulse Ox O2 Delivery O2 Flow Rate FiO2 03/10/25 15:59 98.4 77 18 149/61 (90) 99 98.4 03/10/25 13:57 96.0 69 15 134/79 98 96.0 Laboratory Tests Test 03/10/25 14:06 White Blood Count 7.1 10^3/uL (4.4-10.8) Departure 1 Departure Time of Disposition: 19:22 (Patient presented with abdominal pain that was concerning for possible appendicits, gastritis, cholecystitis, colitis, gastroenteritis, sbo, or orther possible surgical emergency. Data: 1. I ordered and reviewed the result of at least 3 labs including a CBC, BMP, and Urinalysis. 2. I independently interpreted the following tests: CT Abdomen and Pelvis is concerning for benign abdomen.Risk:This patient has a high risk of morbidity due to further diagnostic testing or treatment and may suffer from an acute abdominal process disorder. Workup reveals intractable abdominal pain and patient should be admitted for further workup. and possible expert consultation. ) Impression: Primary Impression: Intractable abdominal pain Additional Impressions: Generalized weakness Shortness of breath Disposition: ADMITTED INPATIENT Admit to: Med Surg Condition: Guarded Critical Care Note Critical Care Time?: No Stability Stability form required: No Heart Score Heart Score: Heart Score Response (Comments) Value History N/A 0 EKG N/A 0 Age N/A 0 Risk Factors N/A 0 Troponin N/A 0 Total 0 I personally scribed for HAO CALVIN MD ([email or web address]) on 03/10/25 at 15:56. Electronically submitted by Nilo Garcia ([email or web address]). HAO CALVIN MD Mar 10, 2025 15:56
[2025-03-10 16:22] LABS: Hematocrit 39.7 % (36.0-46.0); Hemoglobin 13.0 g/dL (12.2-16.2); Mean Corpuscular Hemoglobin 26.2 pg (28.0-32.0); Mean Corpuscular Volume 79.9 fL (80.0-100.0); Nucleated Red Blood Cells % 0.0 %
[2025-03-10 16:38] LABS: Alanine Aminotransferase 34 U/L (7-40); Albumin 4.5 g/dL (3.2-4.8); Anion Gap 11 (5-15); BUN/Creatinine Ratio 20.0 (10.0-20.0); Bilirubin, Total 0.5 mg/dL (0.2-1.0); Blood Urea Nitrogen 16 mg/dL (9-23); Calcium 9.6 mg/dL (8.7-10.4); Carbon Dioxide 29 mmol/L (20-31); Chloride 102 mmol/L (98-107); Lipase 35 U/L (12-53); Potassium 4.2 mmol/L (3.5-5.1); Sodium 142 mmol/L (136-145); Total Protein 6.8 g/dL (5.7-8.2)
[2025-03-10 16:52] LABS: Alkaline Phosphatase 157 U/L (46-116); Glucose 71 mg/dL (74-106)
[2025-03-10] MEDS: IOHEXOL 300 MG/ML 100ML BOTTLE IJ ONE (17:22)
--- NOTE | 2025-03-10 18:16 | DVH ---
Exam: CT CT AB PEL WITH IV CON ONLY History: abdominal pain Comparison Study: CT CT AB PEL WO CON-NO ORAL OR IV on DOS: 10/29/24 TECHNIQUE: A digital personnel generalist manager image was obtained. During the uneventful, intravenous administration of contrast material, multislice data acquisition was obtained through the abdomen and pelvis. The data set was subsequently reconstructed into multiplanar reformats. RADIATION DOSE: CTDI vol 26.7 mGy. DLP 1456.5 mGy.cm Findings: Lungs: The lung bases are clear. Liver: Hepatomegaly. Spleen: Unremarkable. Pancreas: Unremarkable. Gallbladder: Prior cholecystectomy. Adrenals: Unremarkable Kidneys: Unremarkable. Pelvic Viscera: Prior hysterectomy. Vasculature: Unremarkable. Retroperitoneum: Unremarkable. Bowel: No bowel obstruction. The appendix is normal. Musculoskeletal: Chronic compression deformity of the superior endplate of L3. Soft tissues: Ventral fat containing hernia. Impression: 1. No acute abdominopelvic abnormality. 2. Incidental findings as detailed.
[2025-03-10 18:32] LABS: Urine Protein, UAD Negative (Negative)
[2025-03-10] MEDS: ONDANSETRON HCL 4 MG/2 ML VIAL IV ONE (19:30)
[2025-03-10] MEDS: MORPHINE SULFATE 4 MG/ML SYR/VIAL IV ONE (19:30)
[2025-03-10 19:54] VITALS: BP 145/89; PULSE 74; RESP 18; TEMP 98; O2SAT 100
--- NOTE | 2025-03-10 21:08 | DVHHPRES ---
History of Present Illness Resident Creating Document: DANIEL BLUM RESIDENT History of Present Illness Benjamin Haque, a 49-year-old female presented to the ER with the complaints of constipation since last one week. She used laxatives, GoLYTELY without any relief of constipation. She reports having abdominal distention and diffuse pain for the same duration. She denies any other complaints. Past medical history: Stage II cervical cancer Past surgical history: Hysterectomy due to stage II cervical cancer, 2 sections, cholecystectomy. Smoking history: She previously had smoked for 7 years, 4-5 cigarettes a day. She stopped smoking. Alcohol: Last drink was 1 year ago. Drug abuse: Methamphetamine use few years ago. Medications: Tramadol for back pain, Ozempic Lives with family Review of Systems Gastrointestinal: Abdominal Pain, Constipation Allergies: Coded Allergies: NO KNOWN ALLERGIES (Unverified , 05/26/22) Exam Vital Signs Vital Signs Date Time Temp Pulse Resp B/P (MAP) Pulse Ox O2 Delivery O2 Flow Rate FiO2 03/10/25 19:54 98.0 74 18 145/89 (107) 100 98.0 Exam Pt is lying on bed General Appearance: Alert, Oriented X3, Cooperative, Mild distress HEENT: Atraumatic, Mucous membranes moist/pink Respiratory: Clear to auscultation, Normal air movement, No added sounds Cardiovascular: Regular rate, Normal S1, Normal S2, No murmurs Abdominal/ : Active bowel sounds, Soft, no distention, mild diffuse tenderness Extremities: No edema, Normal pulses, No tenderness/swelling Skin: No Significant rash, except past surgical scars Neuro: Normal speech, sensorimotor deficits none Psych/Mental Status: Mental status NL, Mood NL Nurse was there as net programmer during examination Labs/Xrays Labs Test 03/10/25 17:40 03/10/25 14:06 Range/Units Urine Color Light-yellow Yellow Urine Clarity Clear Clear Urine pH 5.5 5.0-9.0 Urine Specific [place] 1.017 1.001-1.035 Urine Protein Negative Negative Urine Ketones Negative Negative Urine Blood Negative Negative /uL Urine Nitrite Negative Negative Urine Bilirubin Negative Negative Urine Urobilinogen Normal Negative mg/dL Urine Leukocyte Esterase Negative Negative /uL Urine RBC 2 0 - 4 /hpf Urine Microscopic WBC < 1 0-5 /HPF Urine Squamous Epithelial Cells Few <5 /hpf Urine Bacteria Few H None Seen /hpf Urine Glucose Normal Normal mg/dL White Blood Count 7.1 4.4-10.8 10^3/uL Red Blood Count 4.97 4.0-5.20 10^6/uL Hemoglobin 13.0 12.2-16.2 g/dL Hematocrit 39.7 36.0-46.0 % Mean Corpuscular Volume 79.9 L 80.0-100.0 fL Mean Corpuscular Hemoglobin 26.2 L 28.0-32.0 pg Mean Corpuscular Hemoglobin Concent 32.8 32.0-36.0 g/dL Red Cell Distribution Width 15.4 H 11.8-14.3 % Platelet Count 312 140-450 10^3/uL Mean Platelet Volume 8.1 6.9-10.8 fL Neutrophils (%) (Auto) 49.1 37.0-80.0 % Lymphocytes (%) (Auto) 36.9 10.0-50.0 % Monocytes (%) (Auto) 6.7 0.0-12.0 % Eosinophils (%) (Auto) 6.8 0.0-7.0 % Basophils (%) (Auto) 0.5 0.0-2.0 % Neutrophils # (Auto) 3.5 1.6-8.6 10 ^3/uL Lymphocytes # (Auto) 2.6 0.4-5.4 10 ^3/uL Monocytes # (Auto) 0.5 0-1.3 10 ^3/uL Eosinophils # (Auto) 0.5 0-0.8 10 ^3/uL Basophils # (Auto) 0 0-0.2 10 ^3/uL Nucleated Red Blood Cells 0.0 % Sodium Level 142 136-145 mmol/L Potassium Level 4.2 3.5-5.1 mmol/L Chloride Level 102 98-107 mmol/L Carbon Dioxide Level 29 20-31 mmol/L Anion Gap 11 5-15 Blood Urea Nitrogen 16 9-23 mg/dL Creatinine 0.80 0.550-1.02 mg/dL Glomerular Filtration Rate Calc 90 >90 mL/min BUN/Creatinine Ratio 20.0 10.0-20.0 Serum Glucose 71 L 74-106 mg/dL Calcium Level 9.6 8.7-10.4 mg/dL Total Bilirubin 0.5 0.2-1.0 mg/dL Aspartate Amino Transferase (AST) 35 13-40 U/L Alanine Aminotransferase (ALT) 34 7-40 U/L Alkaline Phosphatase 157 H 46-116 U/L Troponin I High Sensitivity 21 </=34 ng/L Total Protein 6.8 5.7-8.2 g/dL Albumin 4.5 3.2-4.8 g/dL Lipase 35 12-53 U/L SEPSIS Sepsis Screen Date sepsis recognized/suspect: Mar 10, 2025 Time Sepsis recognized/suspect: 1359 Recent Procedure: No On Antibiotic Therapy: No Respiratory Rate >20: No Heart Rate >90: No Temp<36 C (96.8 F) or >38.3 C: No SBP <90 or MAP <65 mmHG: No New Acute Mental Status Change: No Is the patient on CPAP, BIPAP,: No Physician Orders Ct Ab Pel With Iv Con Only (03/10/25 15:44) Vital Signs Date Time Temp Pulse Resp B/P (MAP) Pulse Ox O2 Delivery O2 Flow Rate FiO2 03/10/25 19:54 98.0 74 18 145/89 (107) 100 98.0 03/10/25 15:59 98.4 77 18 149/61 (90) 99 98.4 03/10/25 13:57 96.0 69 15 134/79 98 96.0 Laboratory Tests Test 03/10/25 14:06 White Blood Count 7.1 10^3/uL (4.4-10.8) Assessment/Plan Assessment/Plan Intractable abdominal pain Slow transit constipation CT abdomen pelvis: No acute abnormality Lipase WNL Lactulose History of cervical cancer stage II status post hysterectomy 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 Cyr , patient and RN Plan discussed with: Patient, Other (RN) Visit Coding STANDARD RES Billing Provider: DANIEL BLUM Date of Service if different f: Mar 10, 2025 Common Visit Codes: 78732-[id number] INP/OBS CARE (HIGH) Secondary Visit Codes: 88084-[id number] CARE PLAN 30 MINUTES DANIEL BLUM Mar 10, 2025 21:08
[2025-03-10] MEDS ORDERED: ACETAMINOPHEN 325 MG TAB PO PRN (21:15)
[2025-03-10] MEDS: LACTULOSE 20Gm/30ML SOLN PO ONE (21:59)
[2025-03-10] MEDS: SODIUM CHLORIDE 0.9% 1,000 ML IV ONE (22:00)
[2025-03-11] MEDS ORDERED: PANTOPRAZOLE 40 MG TAB PO SCH (06:00)
[2025-03-11] MEDS ORDERED: LACTULOSE 20Gm/30ML SOLN PO SCH (10:00)
--- NOTE | 2025-03-11 13:12 | DVHDS2 ---
Discharge Summary Date of Admission Mar 10, 2025 at 21:08 Date of Discharge: Mar 11, 2025 Labs/Diagnostic Data: Laboratory Results Test 03/10/25 17:40 03/10/25 14:06 Urine Color Light-yellow (Yellow) Urine Clarity Clear (Clear) Urine pH 5.5 (5.0-9.0) Urine Specific [place] 1.017 (1.001-1.035) Urine Protein Negative (Negative) Urine Ketones Negative (Negative) Urine Blood Negative /uL (Negative) Urine Nitrite Negative (Negative) Urine Bilirubin Negative (Negative) Urine Urobilinogen Normal mg/dL (Negative) Urine Leukocyte Esterase Negative /uL (Negative) Urine RBC 2 /hpf (0 - 4) Urine Microscopic WBC < 1 /HPF (0-5) Urine Squamous Epithelial Cells Few /hpf (<5) Urine Bacteria Few /hpf (None Seen) Urine Glucose Normal mg/dL (Normal) White Blood Count 7.1 10^3/uL (4.4-10.8) Red Blood Count 4.97 10^6/uL (4.0-5.20) Hemoglobin 13.0 g/dL (12.2-16.2) Hematocrit 39.7 % (36.0-46.0) Mean Corpuscular Volume 79.9 fL (80.0-100.0) Mean Corpuscular Hemoglobin 26.2 pg (28.0-32.0) Mean Corpuscular Hemoglobin Concent 32.8 g/dL (32.0-36.0) Red Cell Distribution Width 15.4 % (11.8-14.3) Platelet Count 312 10^3/uL (140-450) Mean Platelet Volume 8.1 fL (6.9-10.8) Neutrophils (%) (Auto) 49.1 % (37.0-80.0) Lymphocytes (%) (Auto) 36.9 % (10.0-50.0) Monocytes (%) (Auto) 6.7 % (0.0-12.0) Eosinophils (%) (Auto) 6.8 % (0.0-7.0) Basophils (%) (Auto) 0.5 % (0.0-2.0) Neutrophils # (Auto) 3.5 10 ^3/uL (1.6-8.6) Lymphocytes # (Auto) 2.6 10 ^3/uL (0.4-5.4) Monocytes # (Auto) 0.5 10 ^3/uL (0-1.3) Eosinophils # (Auto) 0.5 10 ^3/uL (0-0.8) Basophils # (Auto) 0 10 ^3/uL (0-0.2) Nucleated Red Blood Cells 0.0 % Sodium Level 142 mmol/L (136-145) Potassium Level 4.2 mmol/L (3.5-5.1) Chloride Level 102 mmol/L (98-107) Carbon Dioxide Level 29 mmol/L (20-31) Anion Gap 11 (5-15) Blood Urea Nitrogen 16 mg/dL (9-23) Creatinine 0.80 mg/dL (0.550-1.02) Glomerular Filtration Rate Calc 90 mL/min (>90) BUN/Creatinine Ratio 20.0 (10.0-20.0) Serum Glucose 71 mg/dL (74-106) Calcium Level 9.6 mg/dL (8.7-10.4) Total Bilirubin 0.5 mg/dL (0.2-1.0) Aspartate Amino Transferase (AST) 35 U/L (13-40) Alanine Aminotransferase (ALT) 34 U/L (7-40) Alkaline Phosphatase 157 U/L (46-116) Troponin I High Sensitivity 21 ng/L (</=34) Total Protein 6.8 g/dL (5.7-8.2) Albumin 4.5 g/dL (3.2-4.8) Lipase 35 U/L (12-53) Other Laboratory Tests 03/10/25 14:06 Brief Hx & Hospital Course: Benjamin Haque, a 49-year-old female presented to the ER with the complaints of constipation since last one week. She used laxatives, GoLYTELY without any relief of constipation. She reports having abdominal distention and diffuse pain for the same duration. She denies any other complaints. Left AMA Condition at Discharge: Good Final Diagnosis/Problems List Gastritis Discharge Disposition: AMA Discharge Instruct/Medications Scheduled Nitrofurantoin Monohydrate Mac (Macrobid), 100 MG PO BID Scheduled PRN Acetaminophen (Acetaminophen), 500 MG PO Q4HP PRN Hydrocodone-Acetaminophen (Hydrocodone Bitartrate/AC 5-325 mg), 1 TAB PO Q6HPRN PRN Ibuprofen Micronized (Ibuprofen), 800 MG PO Q8HP PRN Ibuprofen Micronized (Ibuprofen), 800 MG PO Q8HPRN PRN Discharge Statement: "Patient was advised to return to the ER or call 911 if any headaches, dizziness, shortness of breath, chest pain, abdominal pain, bleeding, fevers, or worsening of medical condition. Patient was counseled about treatment plan, medications, possible side effects, patientverbalized understanding. All questions were answered to the best of my ability. This discharge took greater then 30 minutes in planning, reviewing documentation, counseling the patient, and discussing with other team members." ASSESSMENT ASSESSMENT Assessment Date of Service: Mar 11, 2025 Billing Provider: FÉLIX CHO MD Common Visit Codes: 47524-AJI/OBS DISCH DAY >30min FÉLIX CHO MD Mar 11, 2025 13:12
== END 2025-03-11 00:53 | disposition left against medical advice (07) | DRG 241 ==
LOC: ER 13:55 → OVERFLOW 21:08
PROVIDERS: ADMIT Hospitalist; ATTEND Hospitalist
DX: K29.70 Gastritis, unspecified, without bleeding (principal); F15.90 Other stimulant use, unspecified, uncomplicated; K59.01 Slow transit constipation; Z53.29 Procedure and treatment not carried out because of patient's decision for other reasons; Z90.49 Acquired absence of other specified parts of digestive tract; Z90.710 Acquired absence of both cervix and uterus; Z87.891 Personal history of nicotine dependence; Z85.41 Personal history of malignant neoplasm of cervix uteri; Z79.899 Other long term (current) drug therapy
CPT/HCPCS: 36415; 74177; 80053; 81001; 83690; 84484; 85025; 96360; G0378